=== PATIENT | male | born 1935 | race Caucasian/White ===

== ENCOUNTER 2017-09-26 07:39 | Day surgery (SDC) | payer MEDICARE, OTHER ==
[~2017-09-26] VITALS: Ht 180.3 cm; Wt 90.7 kg
[~2017-09-26 07:39] MED LIST: ASCO500; ATOR10; ATOR20 PO; CALCA400CH; CHOL10002; CIPR500 PO; CRANBERRY250 MG; CYAN500; FISH OIL 1,0001 EAC1; LIPITOR; OXYACE5T PO; PYRI100; SERT25; SERT50 PO; TAMS.4ER PO; TUMS300 MG; ZINC15; ZOLOFT
== END 2017-09-26 10:20 | disposition home or self-care (01) ==
LOC: ORSCSDS 07:39
PROVIDERS: Internal Medicine Gastroenterology
PROC: 0DBM8ZX Excision of Descending Colon, Via Natural or Artificial Opening Endoscopic, Diagnostic (ICD-10-PCS; principal; 2017-09-26 09:00)
PROC: 0DBN8ZX Excision of Sigmoid Colon, Via Natural or Artificial Opening Endoscopic, Diagnostic (ICD-10-PCS; principal; 2017-09-26 09:00)
PROC: 0DBH8ZX Excision of Cecum, Via Natural or Artificial Opening Endoscopic, Diagnostic (ICD-10-PCS; principal; 2017-09-26 09:00)
DX: Z12.11 Encounter for screening for malignant neoplasm of colon (principal); D12.0 Benign neoplasm of cecum; D12.4 Benign neoplasm of descending colon; D12.5 Benign neoplasm of sigmoid colon; K57.30 Diverticulosis of large intestine without perforation or abscess without bleeding; I10 Essential (primary) hypertension; Z86.010 Personal history of colon polyps; Z87.891 Personal history of nicotine dependence; Z79.899 Other long term (current) drug therapy
CPT/HCPCS: 88305; J0330; J1980; J2405; J7120

== ENCOUNTER 2018-09-02 21:20 | Emergency (ER) | payer MEDICARE, OTHER ==
[~2018-09-02] VITALS: Ht 180.3 cm; Wt 97.5 kg
[2018-09-02 21:42] LABS: BASOPHILS ABSOLUTE AUTO 0.03 K/mm3 (0.00-0.23); BASOPHILS PERCENT AUTO 0 % (0-2); EOSINOPHILS ABSOLUTE AUTO 0.04 K/mm3 (0.00-0.68); EOSINOPHILS PERCENT AUTO 0 % (0-6); Hematocrit 44.9 % (37.0-53.0); Hemoglobin 15.4 g/dL (13.5-17.5); IMMATURE GRAN ABSOLUTE AUTO 0.04 K/mm3 (0.00-0.10); IMMATURE GRAN PERCENT AUTO 0 % (0-1); LYMPHOCYTES ABSOLUTE AUTO 1.13 K/mm3 (0.84-5.20); LYMPHOCYTES PERCENT AUTO 11 % (21-46); MONOCYTES ABSOLUTE AUTO 0.46 K/mm3 (0.16-1.47); MONOCYTES PERCENT AUTO 5 % (4-13); Mean Corpuscular HGB 30.7 pg (26.0-34.0); Mean Corpuscular HGB Conc 34.3 g/dL (31.5-36.5); Mean Corpuscular Volume 90 fL (80-100); Mean Platelet Volume 9.1 fL (9.1-12.4); NEUTROPHILS ABSOLUTE AUTO 8.28 K/mm3 (1.96-9.15); NEUTROPHILS PERCENT AUTO 83 % (41-73); Platelet Count 226 K/mm3 (150-400); RDW Coefficient Variation 12.9 % (11.7-14.2); RDW Standard Deviation 42.7 fL (35.1-46.3); Red Blood Cell Count 5.01 M/mm3 (4.30-5.90); White Blood Cell Count 9.98 K/mm3 (4.00-11.30)
[2018-09-02 21:57] LABS: Alanine Aminotransfer (ALT/SGP 28 U/L (12-78); Albumin, Blood 3.7 g/dL (3.4-5.0); Albumin/Globulin Ratio 1.2 (0.8-1.8); Alk Phos 82 U/L (50-136); Anion Gap 9 mmol/L (6-16); Aspartate Aminotrans (AST/SGOT 20 U/L (12-37); Bilirubin, Total 0.4 mg/dL (0.1-1.0); Blood Urea Nitrogen 14 mg/dL (8-24); Bun/Creatinine Ratio 11.8 (12.0-20.0); CO2, Blood 24 mmol/L (21-32); Calcium, Blood 9.1 mg/dL (8.5-10.1); Chloride, Blood 105 mmol/L (98-108); Creatinine, Blood 1.19 mg/dL (0.60-1.20); Globulin, Blood 3.1 g/dL (2.2-4.0); Glomerular Filtration Rate >60 (60-); Glucose, Blood 206 mg/dL (70-99); Potassium, Blood 3.6 mmol/L (3.5-5.5); Sodium, Blood 138 mmol/L (136-145); Total Protein, Blood 6.8 g/dL (6.4-8.2); Troponin I <0.015 ng/mL (0.000-0.040)
== END 2018-09-02 23:11 | disposition home or self-care (01) ==
LOC: ER 21:20
PROVIDERS: Emergency Medicine
DX: R55 Syncope and collapse (principal); F32.9 Major depressive disorder, single episode, unspecified; E78.5 Hyperlipidemia, unspecified
CPT/HCPCS: 36415; 80053; 84484; 85025; 93005; 93010; 99284-25

== ENCOUNTER 2020-12-14 15:07 | Inpatient (IN) | payer MEDICARE, OTHER ==
[~2020-12-14] VITALS: Ht 175.3 cm; Wt 93.6 kg
[2020-12-14 15:37] LABS: BASOPHILS ABSOLUTE AUTO 0.08 K/mm3 (0.00-0.23); BASOPHILS PERCENT AUTO 0 % (0-2); EOSINOPHILS PERCENT AUTO 0 % (0-6); Hematocrit 49.4 % (37.0-53.0); Hemoglobin 16.9 g/dL (13.5-17.5); IMMATURE GRAN ABSOLUTE AUTO 0.13 K/mm3 (0.00-0.10); IMMATURE GRAN PERCENT AUTO 1 % (0-1); LYMPHOCYTES ABSOLUTE AUTO 0.52 K/mm3 (0.84-5.20); LYMPHOCYTES PERCENT AUTO 2 % (21-46); MONOCYTES ABSOLUTE AUTO 1.25 K/mm3 (0.16-1.47); MONOCYTES PERCENT AUTO 6 % (4-13); Mean Corpuscular HGB 29.8 pg (26.0-34.0); Mean Corpuscular HGB Conc 34.2 g/dL (31.5-36.5); Mean Corpuscular Volume 87 fL (80-100); Mean Platelet Volume 9.5 fL (9.1-12.4); NEUTROPHILS PERCENT AUTO 91 % (41-73); Platelet Count 301 K/mm3 (150-400); RDW Coefficient Variation 13.3 % (11.7-14.2); RDW Standard Deviation 42.6 fL (35.1-46.3); Red Blood Cell Count 5.68 M/mm3 (4.30-5.90); White Blood Cell Count 22.68 K/mm3 (4.00-11.30)
[2020-12-14] MEDS ORDERED: ZOLOFT100 M4 PO (15:47)
[2020-12-14] MEDS ORDERED: TAMSULOSIN HCL0.4 M1 PO (15:47)
[2020-12-14 16:06] LABS: Alanine Aminotransfer (ALT/SGP 109 U/L (12-78); Albumin, Blood 2.4 g/dL (3.4-5.0); Albumin/Globulin Ratio 0.5 (0.8-1.8); Alk Phos 97 U/L (50-136); Anion Gap 10 mmol/L (6-16); Aspartate Aminotrans (AST/SGOT 105 U/L (12-37); Bilirubin, Total 1.3 mg/dL (0.1-1.0); Blood Urea Nitrogen 75 mg/dL (8-24); CO2, Blood 24 mmol/L (21-32); Calcium, Blood 9.6 mg/dL (8.5-10.1); Chloride, Blood 109 mmol/L (98-108); Creatinine, Blood 1.25 mg/dL (0.60-1.20); Ethanol (Alcohol), Blood, Med <3 mg/dL; Globulin, Blood 4.8 g/dL (2.2-4.0); Glomerular Filtration Rate 58 (60-); Glucose, Blood 209 mg/dL (70-99); Potassium, Blood 3.7 mmol/L (3.5-5.5); Sodium, Blood 143 mmol/L (136-145); Total Protein, Blood 7.2 g/dL (6.4-8.2); Troponin I 0.055 ng/mL (0.000-0.040)
[2020-12-14 16:09] LABS: CPK Creatine Kinase 1703 U/L (39-308)
[2020-12-14 16:22] LABS: Creatine Kinase MB 14.4 ng/mL (0.0-3.6); Creatine Kinase MB Index 0.8 (0.0-4.0)
[2020-12-14 17:33] LABS: Source, Urine Catheter
[2020-12-14 17:37] LABS: Appearance, Urine Hazy (Clear); Bilirubin, Urine Neg (Neg); Blood, Urine 5+ (Neg); Color, Urine Amber (P-Yellow); Glucose Qualitative, Urine 1+ (Neg); Ketones, Urine 2+ (Neg); Leukocyte Esterase, Urine 1+ (Neg); Nitrite, Urine Neg (Neg); Protein, Urine 3+ (Neg); Urobilinogen, Urine 1+ (Normal)
[2020-12-14 17:50] LABS: U Amphetamine Screen Not Detected; U Barbituate Screen Not Detected; U Benzodiazapine Screen Not Detected; U Buprenorphine Screen Not Detected; U Cannabinoids Screen Not Detected; U Cocaine Screen Not Detected; U Methadone Screen Not Detected; U Methamphetamine Screen Not Detected; U Opiates Screen DETECTED; U Oxycodone Screen Not Detected; U Phencyclidine Screen Not Detected; U Propoxyphene Screen Not Detected
[2020-12-14 18:09] LABS: Amorphous Light (0-Heavy); Bacteria Many /hpf; Mucus Heavy (0-Heavy); Renal Epithelial Few /hpf (0-Rare); Squamous Epithelial Cells Rare /hpf (Few); Transitional Epithelial Cells Few /hpf (0-Rare)
[2020-12-14] MEDS ORDERED: CALCIPOTRIENE60 G1 TOP (18:48)
[2020-12-14] MEDS ORDERED: Fluocinonide15 GM TOP (18:49)
[2020-12-14] MEDS ORDERED: TRIDERM28.4 GM TOP (18:49)
[2020-12-14] MEDS ORDERED: BACL10 PO (18:50)
[2020-12-14] MEDS ORDERED: SERT100 PO (18:50)
[2020-12-14] MEDS ORDERED: ATOR40TA PO (18:50)
[2020-12-14] MEDS ORDERED: BUSPIRONE HCL7.5 M1 PO (18:52)
[2020-12-14] MEDS ORDERED: TAMS.4ER PO (18:52)
[2020-12-14] MEDS ORDERED: UROXATRAL PO (18:53)
--- NOTE | 2020-12-15 05:08 | NUR ---
SHIFT SUMMARY RECIEVED REPORT FROM CHAYO KRAFT. PATIENT TO ROOM VIA STRETCHER AND SLID TO THE BED @2137. PATIENT ALERT AND ANSWERS ORIENTATION QUESTIONS, PERSON, PLACE, SELF, YEAR. BUT HAS FLIGHT OF IDEAS AND WHEN ASKED ABOUT MEDICAL HISTORY DOES NOT ANSWER APPROPRIETLY. PATIENT YELLS OUT FOR PEOPLE WHO ARE NOT HERE AND NEEDS REORIENTED OCCASIONALLY. Q2 HOUR TURNS. LACTIC ACID OF 4.0 CALLED TO HOSPITALIST 1L LR BOLUS GIVEN. PATIENT WENT INTO SVT CALLED HOSPITALIST, EKG DONE, CARDIZEM PUSH GIVEN. PATIENT HR SLOWED AND STAYED SINUS TACH @ 100-110s. C-COLLAR IN PLACE. CONDOM CATHETER TO BETTER MEASURE OUTPUT. CALL LIGHT IN REACH.
[2020-12-15 06:29] LABS: BASOPHILS ABSOLUTE AUTO 0.05 K/mm3 (0.00-0.23); BASOPHILS PERCENT AUTO 0 % (0-2); EOSINOPHILS PERCENT AUTO 0 % (0-6); Hematocrit 41.7 % (37.0-53.0); Hemoglobin 14.3 g/dL (13.5-17.5); IMMATURE GRAN ABSOLUTE AUTO 0.17 K/mm3 (0.00-0.10); IMMATURE GRAN PERCENT AUTO 1 % (0-1); LYMPHOCYTES PERCENT AUTO 3 % (21-46); MONOCYTES ABSOLUTE AUTO 0.93 K/mm3 (0.16-1.47); MONOCYTES PERCENT AUTO 5 % (4-13); Mean Corpuscular HGB 29.7 pg (26.0-34.0); Mean Corpuscular HGB Conc 34.3 g/dL (31.5-36.5); Mean Corpuscular Volume 87 fL (80-100); Mean Platelet Volume 9.3 fL (9.1-12.4); NEUTROPHILS ABSOLUTE AUTO 18.53 K/mm3 (1.96-9.15); NEUTROPHILS PERCENT AUTO 91 % (41-73); Platelet Count 248 K/mm3 (150-400); RDW Coefficient Variation 13.5 % (11.7-14.2); RDW Standard Deviation 43.4 fL (35.1-46.3); Red Blood Cell Count 4.81 M/mm3 (4.30-5.90); White Blood Cell Count 20.28 K/mm3 (4.00-11.30)
[2020-12-15 06:58] LABS: Alanine Aminotransfer (ALT/SGP 119 U/L (12-78); Albumin/Globulin Ratio 0.5 (0.8-1.8); Alk Phos 87 U/L (50-136); Anion Gap 6 mmol/L (6-16); Aspartate Aminotrans (AST/SGOT 110 U/L (12-37); Bilirubin, Total 1.2 mg/dL (0.1-1.0); Blood Urea Nitrogen 53 mg/dL (8-24); Bun/Creatinine Ratio 54.8 (12.0-20.0); CO2, Blood 24 mmol/L (21-32); CPK Creatine Kinase 868 U/L (39-308); Calcium, Blood 8.8 mg/dL (8.5-10.1); Chloride, Blood 114 mmol/L (98-108); Creatinine, Blood 0.97 mg/dL (0.60-1.20); Glomerular Filtration Rate >60 (60-); Glucose, Blood 186 mg/dL (70-99); Potassium, Blood 4.1 mmol/L (3.5-5.5); Sodium, Blood 144 mmol/L (136-145)
[2020-12-15 10:59] LABS: Source, Urine Catheter
[2020-12-15 11:10] LABS: Appearance, Urine Clear (Clear); Bilirubin, Urine Neg (Neg); Blood, Urine 2+ (Neg); Color, Urine Yellow (P-Yellow); Glucose Qualitative, Urine Neg (Neg); Ketones, Urine Neg (Neg); Leukocyte Esterase, Urine 1+ (Neg); Nitrite, Urine Neg (Neg); Protein, Urine 2+ (Neg); Specific Gravity, Urine 1.015 (1.003-1.022); Urobilinogen, Urine 1+ (Normal)
[2020-12-15 11:48] LABS: White Blood Cells, Urine 0-2 /hpf (0-5)
[2020-12-15 11:50] LABS: Bacteria Few /hpf; Hyaline Casts 0-2 /lpf (0-2); Mucus Light (0-Heavy); Red Blood Cells, Urine 0-2 /hpf (0-2); Squamous Epithelial Cells Few /hpf (Few)
[2020-12-15 17:39] LABS: Influenza A, PCR NEGATIVE (NEGATIVE); Influenza B, PCR NEGATIVE (NEGATIVE); Resp Syncytial Virus, PCR NEGATIVE (NEGATIVE); SARS-Cov-2 (COVID-19) PCR, MMC NEGATIVE (NEGATIVE)
[2020-12-15 18:03] LABS: Body Fluid Crystals NEG (NEGATIVE)
[2020-12-15 18:05] LABS: BODY FLUID RBC 0.053 M/mm3 (0-0); Body Fluid Crystals NEG (NEGATIVE); RBC Count, Synovial Fluid 53000 /mm3 (0-0)
[2020-12-15 18:14] LABS: BODY FLUID RBC 0.015 M/mm3 (0-0); RBC Count, Synovial Fluid 15000 /mm3 (0-0)
--- NOTE | 2020-12-15 18:17 | NUR ---
Called lab for rapid covid results. Microbiology states that it is a negative covid. Message sent to physician to inform of negative result.
[2020-12-15 18:36] LABS: WBC Count, Synovial Fluid 144860 /mm3 (0-180)
[2020-12-15 18:42] LABS: WBC Count, Synovial Fluid 74660 /mm3 (0-180)
[2020-12-15 18:47] LABS: Appearance, Synovial Fluid Turbid (Clear); Color, Synovial Fluid Yellow (None-P Yel)
[2020-12-15 18:48] LABS: Appearance, Synovial Fluid Turbid (Clear); Color, Synovial Fluid Yellow (None-P Yel)
[2020-12-15 19:24] LABS: Lymphs, Synovial Fluid 1 % (0-15); Monocytes/Macrophages, Synovia 9 % (0-65); Neutrophils, Synovial Fluid 90 % (0-24)
[2020-12-15 19:25] LABS: Monocytes/Macrophages, Synovia 4 % (0-65); Neutrophils, Synovial Fluid 96 % (0-24)
--- NOTE | 2020-12-15 20:08 | NUR ---
SHIFT SUMMARY PT A&Ox4; NONSENSICAL/CONFUSED AT TIMES, EASILY REORIENTED. PT RESTING IN BED, REPOSITIONED FOR COMFORT. C-COLLAR REMAINED IN PLACE T/O SHIFT. PT RPEORTS PAIN THIS AFTERNOON, WITH ELEVATED BP; MEDICATED x1 WITH POSITIVE RESULTS; PT DENIES ANY ADDITIONAL PAIN MEDICATION T/O SHIFT. ELEVATED BLOOD GLUCOSE, PT REFUSING INSULIN, STATES "YOU AINT SHOOTING ME UP WITH INSULING." DR MURILLO NOTIFIED. DR MURILLO NOTIFIED OF RIGHT HAND, RED, WARM AND SWOLLEN AND JOINT PAIN NOTED T/O, BILATERAL KNEE HURT WITH MINIMAL TOUCH; ORDERS TO CONSULT DR FAIRCHILD; DR FAIRCHILD AT BEDSIDE THIS AFTERNOON; NEW ORDERS ENTERED; COLLECTION OF RIGHT HAND WOUND CULTURES; BILATERAL KNEE ASPIRATION WITH LAB SENT TO [facility]; PT CONTINUES NPO AT THIS TIME, PLANS FOR I&D THIS EVENING. PT DENIES SOB, NAUSEA AND DIZZINESS T/O SHIFT. ELEVATED HR AND BP; MEDICATED PER EMAR. 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 TEMP TRENDING UP. OTHER VSS. NO OTHER ACUTE CHANGES NOTED DURING SHIFT. REPORT GIVEN TO ONCOMING RN.
--- NOTE | 2020-12-15 23:19 | NUR ---
ASSUMPTION OF CARE PATIENT ARRIVED TO UNIT AT 2249 POST-OP. RECEIVED OPERATIVE REPORT FROM ANESTHESIA. PATIENT AWAKE, SHIVERING. 10L 02 VIA NON-REBREATHER. BULKY WRAPPED DRESSING TO RIGHT HAND, REPORTED A PEN-VAISHALI DRAIN UNDER DRESSING. DRESSING C/D/I. C-SPINE COLLAR IN PLACE. BILATERAL KNEE DRESSINGS EACH WITH LARGE IMMOBILZERS FROM THIGH TO CALF IN LENGTH AND BILATERAL JPS IN KNEES WITH RED DRAINAGE. BEAR HUGGER PLACED FOR WARMTH TO ALLEVIATE SHIVERING. WILL REVIEW ORDERS AND TREAT PRESCRIBED.
[2020-12-16 03:47] LABS: BASOPHILS ABSOLUTE AUTO 0.03 K/mm3 (0.00-0.23); BASOPHILS PERCENT AUTO 0 % (0-2); EOSINOPHILS PERCENT AUTO 0 % (0-6); Hematocrit 37.1 % (37.0-53.0); Hemoglobin 12.6 g/dL (13.5-17.5); IMMATURE GRAN ABSOLUTE AUTO 0.24 K/mm3 (0.00-0.10); IMMATURE GRAN PERCENT AUTO 1 % (0-1); LYMPHOCYTES ABSOLUTE AUTO 0.56 K/mm3 (0.84-5.20); LYMPHOCYTES PERCENT AUTO 3 % (21-46); MONOCYTES ABSOLUTE AUTO 0.71 K/mm3 (0.16-1.47); MONOCYTES PERCENT AUTO 4 % (4-13); Mean Corpuscular HGB 29.6 pg (26.0-34.0); Mean Corpuscular Volume 87 fL (80-100); Mean Platelet Volume 9.2 fL (9.1-12.4); NEUTROPHILS ABSOLUTE AUTO 15.94 K/mm3 (1.96-9.15); NEUTROPHILS PERCENT AUTO 91 % (41-73); Platelet Count 208 K/mm3 (150-400); RDW Standard Deviation 44.8 fL (35.1-46.3); Red Blood Cell Count 4.26 M/mm3 (4.30-5.90); White Blood Cell Count 17.48 K/mm3 (4.00-11.30)
--- NOTE | 2020-12-16 04:00 | NUR ---
REASSESSMENT NO ACUTE CHANGES FROM PREVIOUS ASSESSMENT. CONTINUING TO MEDICATE FOR PAIN. PATIENT REMAINS CONFUSED THINKS HE IS IN [place]. DOES NOT ANSWER QUESTIONS APPROPRIATELY AND OFTEN SPEAKS ONE WORD ANSWERS IN MACEDONIAN. WATER GIVEN WITH RN AT BEDSIDE EVALUATING. PATIENT TOLERATING WELL. WILL CONTINUE TO MONITOR.
[2020-12-16 04:29] LABS: Thyroid Stimulating Hormone 0.971 uIU/mL (0.360-4.800)
[2020-12-16 04:30] LABS: Alanine Aminotransfer (ALT/SGP 422 U/L (12-78); Albumin, Blood 1.8 g/dL (3.4-5.0); Albumin/Globulin Ratio 0.5 (0.8-1.8); Alk Phos 106 U/L (50-136); Anion Gap 5 mmol/L (6-16); Aspartate Aminotrans (AST/SGOT 324 U/L (12-37); Bilirubin, Total 1.3 mg/dL (0.1-1.0); Blood Urea Nitrogen 41 mg/dL (8-24); Bun/Creatinine Ratio 42.1 (12.0-20.0); CO2, Blood 26 mmol/L (21-32); Calcium, Blood 8.2 mg/dL (8.5-10.1); Chloride, Blood 113 mmol/L (98-108); Creatinine, Blood 0.98 mg/dL (0.60-1.20); Globulin, Blood 3.5 g/dL (2.2-4.0); Glomerular Filtration Rate >60 (60-); Glucose, Blood 171 mg/dL (70-99); Potassium, Blood 4.1 mmol/L (3.5-5.5); Sodium, Blood 144 mmol/L (136-145); Total Protein, Blood 5.3 g/dL (6.4-8.2)
--- NOTE | 2020-12-16 06:41 | NUR ---
SHIFT SUMMARY PATIENT RECOVERED POST-OP. VITALS STABLE. TITRATED TO ROOM AIR WITH SATS ABOVE 95%. PATIENT ALERT, CONFUSED TO SITUATION. OFTEN THINKS HE IS IN [place], CALLS OUT FOR ZOLTAN TO HELP HIM OFF THE FLOOR. IS EASILY DIRECTED AND RE-ORIENTED. DRESSING TO RIGHT HAND SATURATED WITH RED DRAINAGE. REWRAPPED IN DRY, CLEAN GAUZE AND BANDAGE WRAP PREVIOUSLY DRESSED BY SURGEON. IMMOBILIZERS REMAIN TO BILATERAL LOWER EXTREMITIES WITH DRESSING TO BILATERAL KNEES C/D/I. JPS WITH S/S DRAINAGE. PATIENT REPORTS SEVERE PAIN TO BILATERAL LOWER EXTREMITIES. CALLED AND SPOKE WITH DR. ACHARYA WHO REQUESTED THE HOSPITALIST BE REACHED. SPOKE WITH DR. WOOD AND RECEIVED ORDERS FOR ONE TIME DOSE OF ADDITIONAL FENTANYL. WILL MEDICATE ORDERED. DUPREE PATENT AND DRAINING. WILL CONTINUE TO MONITOR AND TREAT PRESCRIBED.
--- NOTE | 2020-12-16 07:15 | NUR ---
BEGINNING OF SHIFT Assumed care of pt at 0700. Bedside report received from Therese KRAFT. Pt A&O x 4. Answers questions. Follows commands. Verbalizes needs. Pt pleasant and cooperative with care. Pt on room air. SpO2 90% or greater. SR to ST with HR ranging from 95-105. BP stable. Pt has surgical site to right hand. ISABELLE wrap C/D/I. Color, sensation, capillary refill equal to bilat hands. Pt has surgical sites to bilat knees. ISABELLE wraps C/D/I. Knee immobilizers in place bilaterally. Bilat HEATHER drains with small amount of SS drainage. Pt also has C-Collar in place until he can follow up outpatient for C4 abnormality. Skin C/D/I beneath collar. Pt states that he has lived alone, since his partner, Bandar, . States that he currently lives alone at home, and was found by his neighbor.
--- NOTE | 2020-12-16 13:00 | NUR ---
Dr Lopez in to see pt. States he changed antibiotics. No additional orders at this time.
--- NOTE | 2020-12-16 14:00 | NUR ---
Call placed to Dr Stevens to discuss pt's pain medications as he is extremely uncomfortable with any activity. Also discussed edema to RUE and concern for DVT. New orders received
--- NOTE | 2020-12-16 14:09 | NUR ---
Echocardiogram completed.
--- NOTE | 2020-12-16 17:22 | NUR ---
DR RODRÍGUEZ IN TO SEE PATIENT States pt may move out of ICU. Notified Dr Stevens. Provider states pt can be PCU status. Pt is reporting that he is feeling bloated and would like something for gas. Dr Stevens notified. New orders provided.
--- NOTE | 2020-12-16 18:28 | NUR ---
SUMMARY Pt is now PCU status. Vitals stable. Pt did not want to eat lunch or dinner. Pt has had excellent intake of PO fluids. C spine immobilizer and bilat knee immobilizers remain in place. No acute changes to initial assessment. Will continue to closely monitor until care handoff and bedside report with oncoming RN.
[2020-12-17 03:26] LABS: BASOPHILS ABSOLUTE AUTO 0.04 K/mm3 (0.00-0.23); BASOPHILS PERCENT AUTO 0 % (0-2); EOSINOPHILS ABSOLUTE AUTO 0.12 K/mm3 (0.00-0.68); EOSINOPHILS PERCENT AUTO 1 % (0-6); Hematocrit 34.6 % (37.0-53.0); Hemoglobin 11.5 g/dL (13.5-17.5); IMMATURE GRAN ABSOLUTE AUTO 0.39 K/mm3 (0.00-0.10); IMMATURE GRAN PERCENT AUTO 3 % (0-1); LYMPHOCYTES ABSOLUTE AUTO 0.76 K/mm3 (0.84-5.20); LYMPHOCYTES PERCENT AUTO 6 % (21-46); MONOCYTES ABSOLUTE AUTO 0.63 K/mm3 (0.16-1.47); MONOCYTES PERCENT AUTO 5 % (4-13); Mean Corpuscular HGB 29.6 pg (26.0-34.0); Mean Corpuscular HGB Conc 33.2 g/dL (31.5-36.5); Mean Corpuscular Volume 89 fL (80-100); Mean Platelet Volume 9.5 fL (9.1-12.4); NEUTROPHILS ABSOLUTE AUTO 11.45 K/mm3 (1.96-9.15); NEUTROPHILS PERCENT AUTO 86 % (41-73); Platelet Count 210 K/mm3 (150-400); RDW Coefficient Variation 14.2 % (11.7-14.2); RDW Standard Deviation 46.1 fL (35.1-46.3); Red Blood Cell Count 3.89 M/mm3 (4.30-5.90); White Blood Cell Count 13.39 K/mm3 (4.00-11.30)
[2020-12-17 03:46] LABS: Alanine Aminotransfer (ALT/SGP 281 U/L (12-78); Albumin, Blood 1.7 g/dL (3.4-5.0); Albumin/Globulin Ratio 0.5 (0.8-1.8); Alk Phos 101 U/L (50-136); Anion Gap 7 mmol/L (6-16); Aspartate Aminotrans (AST/SGOT 147 U/L (12-37); Blood Urea Nitrogen 38 mg/dL (8-24); Bun/Creatinine Ratio 40.6 (12.0-20.0); CO2, Blood 24 mmol/L (21-32); Calcium, Blood 7.9 mg/dL (8.5-10.1); Chloride, Blood 111 mmol/L (98-108); Creatinine, Blood 0.94 mg/dL (0.60-1.20); Globulin, Blood 3.1 g/dL (2.2-4.0); Glomerular Filtration Rate >60 (60-); Glucose, Blood 121 mg/dL (70-99); Potassium, Blood 3.6 mmol/L (3.5-5.5); Sodium, Blood 142 mmol/L (136-145); Total Protein, Blood 4.8 g/dL (6.4-8.2)
--- NOTE | 2020-12-17 06:10 | NUR ---
SHIFT SUMMARY VSS IN NORMAL SINUS RHYTHM. ON RA. PATIENT SLEPT T/O MAJORITY OF SHIFT. DRESSING ON RIGHT HAND CHANGED WITH SCANT SEROUS DRAINAGE NOTED FROM WINTER. KNEE IMMOBILIZERS PRESENT BILAT. SURGICAL DRESSINGS O BILAT KNEES C/D/I WITH MINIMAL DRAINAGE TO HEATHER DRAINS. HEATHER DRAINS PATENT. PATIENT CONTINUES TO OCCASIONALY SPEAK IN BULGARIAN. C COLLAR REMAINS IN PLACE. BILAT PEDAL EDEMA 1+ NOTED. PT PLACED NPO AFTER MIDNIGHT FOR PROCEDURE THIS AM. CATHETER CARE PROVIDE. ADEQUATE URINE OUTPUT. PT PUSHED ORAL FLUIDS. PT REFUSED TO BE TURNED AND STATES IT IS TOO PAINFUL TO MOVE. PILLOWS PLACED UNDER HIPS BILAT OFF AND ON. BED ALARM IN PLACE. WILL CONTINUE TO MONITOR UNTIL END OF SHIFT.
--- NOTE | 2020-12-17 06:58 | NUR ---
RN STUDENT THIS RN AGREES WITH STUDENT RN'S ASSESMENT AND CHARTING.
--- NOTE | 2020-12-17 07:30 | NUR ---
ASSUMED CARE OF PT AT THIS TIME. PT A&OX4, VSS, COOPERATIVE WITH CARE. PINROSE DRAIN TO R HAND WITH ISABELLE WRAP, SCANT SS DRAINAGE PRESENT. BILATERAL HEATHER DRAINS TO KNEES, SS DRAINAGE PRESENT. BILATERAL KNEE IMMOBILIZERS IN PLACE. SCATTERED ECCHYMOSIS ON BODY. SCABBED AREAS NOTED TO HEAD, R ELBOW, L CHEEK, L RIB, AND R TOE. DR RODRÍGUEZ AT BEDSIDE FOR ASSESSMENT. PT TO CT THIS AM TO DETERMINE ADDITIONAL SURGICAL INTERVENTION. BED IN LOW, LOCKED POSITION, CALL LIGHT WITHIN REACH. NO ADDITIONAL NEEDS AT THIS TIME, PT RESTING COMFORTABLY. DUPREE IN PLACE, DARK VIANNEY OUTPUT. NS INFUSING AT 100MLS/HR.
--- NOTE | 2020-12-17 12:12 | NUR ---
DAY SURGERY CALLED STATING PT WILL BE TAKEN TO SURGERY BY DR RODRÍGUEZ AT 12:45
--- NOTE | 2020-12-17 18:15 | NUR ---
PT TAKEN TO ROOM 224 ON SURGICAL FLOOR. DUPREE INTACT AND DRAINING. TEA/VIANNEY COLORED URINE. PINROSE DRAIN TO R HAND. BILATERAL HEATHER DRAINS IN KNEES WITH SEROSANGUINEOUS DRAINAGE. C-COLLAR IN PLACE. REPORT GIVEN TO PIYUSH MORIN RN.
--- NOTE | 2020-12-17 18:58 | NUR ---
ASSUMED CARE OF PT AT 1830 WHEN PT TRANSFERRED FROM ICU TO ROOM 224. PT NOTED TO BE IN C-COLLAR AND SONG KNEE IMMOBILIZERS. RIGHT HAND BANDAGED AND ISABELLE WRAP. CARE HAND OFF REPORT GIVEN TO ELENO KRAFT.
--- NOTE | 2020-12-17 23:18 | NUR ---
DR. RODRÍGUEZ IN TO SEE PATIENT AT APPROX 2030 TO CHANGE DRESSINGS. BLE WRAPPED IN GAUZE AND ISABELLE WRAP. HEATHER DRAINS IN PLACE DRAINING SS FLUID. BULBS COMPRESSED. WINTER DRAIN REMOVED FROM RIGHT HAND AND PACKED WITH STERILE PACKING STRIP. R HAND WRAPPED WITH GAUZE+ISABELLE WRAP. ALL DRESSINGS C/D/I. PT TOLERATED WELL.
[2020-12-18 05:59] LABS: BASOPHILS ABSOLUTE AUTO 0.05 K/mm3 (0.00-0.23); BASOPHILS PERCENT AUTO 1 % (0-2); EOSINOPHILS ABSOLUTE AUTO 0.18 K/mm3 (0.00-0.68); EOSINOPHILS PERCENT AUTO 2 % (0-6); Hematocrit 36.3 % (37.0-53.0); Hemoglobin 12.4 g/dL (13.5-17.5); IMMATURE GRAN ABSOLUTE AUTO 0.82 K/mm3 (0.00-0.10); IMMATURE GRAN PERCENT AUTO 8 % (0-1); LYMPHOCYTES PERCENT AUTO 8 % (21-46); MONOCYTES ABSOLUTE AUTO 0.72 K/mm3 (0.16-1.47); MONOCYTES PERCENT AUTO 7 % (4-13); Mean Corpuscular HGB 29.9 pg (26.0-34.0); Mean Corpuscular HGB Conc 34.2 g/dL (31.5-36.5); Mean Corpuscular Volume 88 fL (80-100); Mean Platelet Volume 9.9 fL (9.1-12.4); NEUTROPHILS ABSOLUTE AUTO 8.32 K/mm3 (1.96-9.15); NEUTROPHILS PERCENT AUTO 76 % (41-73); Platelet Count 223 K/mm3 (150-400); RDW Coefficient Variation 13.9 % (11.7-14.2); RDW Standard Deviation 44.8 fL (35.1-46.3); Red Blood Cell Count 4.15 M/mm3 (4.30-5.90); White Blood Cell Count 10.99 K/mm3 (4.00-11.30)
[2020-12-18 06:15] LABS: Alanine Aminotransfer (ALT/SGP 400 U/L (12-78); Albumin, Blood 1.7 g/dL (3.4-5.0); Albumin/Globulin Ratio 0.5 (0.8-1.8); Alk Phos 129 U/L (50-136); Anion Gap 9 mmol/L (6-16); Aspartate Aminotrans (AST/SGOT 301 U/L (12-37); Blood Urea Nitrogen 33 mg/dL (8-24); Bun/Creatinine Ratio 38.2 (12.0-20.0); CO2, Blood 21 mmol/L (21-32); Calcium, Blood 7.8 mg/dL (8.5-10.1); Chloride, Blood 111 mmol/L (98-108); Creatinine, Blood 0.86 mg/dL (0.60-1.20); Globulin, Blood 3.4 g/dL (2.2-4.0); Glomerular Filtration Rate >60 (60-); Glucose, Blood 128 mg/dL (70-99); Potassium, Blood 3.7 mmol/L (3.5-5.5); Sodium, Blood 141 mmol/L (136-145); Total Protein, Blood 5.1 g/dL (6.4-8.2)
--- NOTE | 2020-12-18 07:19 | NUR ---
SHIFT SUMMARY: PT A&O X4. S/P I&D TO RIGHT HAND AND BILATERAL KNEES. DRESSINGS X3 CHANGED THIS SHIFT. BLE HEATHER DRAINS IN PLACE WITH A SCANT AMOUNT OF SS DRG. IMMOBILIZERS IN PLACE. PT ABLE TO WIGGLE TOES. CAP REFILL WNL. RT ARM SWOLLEN, RED AND WARM TO TOUCH. ELEVATED ON PILLOW. C-COLLAR IN PLACE. IVF AND IV ABX INFUSING PER ORDERS. PAIN BEING MANAGED WITH NORCO AND TYLENOL PER EMAR. DUPREE PATENT AND DRAINING DARK COLORED URINE.
--- NOTE | 2020-12-18 14:21 | NUR ---
C-COLLAR DC'D ORDERED, PT TOELRATED WELL, DENIES ANY DISCOMFORT AT THIS TIME.
--- NOTE | 2020-12-18 15:25 | NUR ---
REDNESS NOTED ON PT'S BACK AND ELBOWS, NOTIFIED THE NURSE AND FLOATED PT'S LIMBS WITH PILLOWS
--- NOTE | 2020-12-18 17:24 | NUR ---
SUMMARY PAIN MANAGEABLE WITH NORCO AND IV DILAUDID, WORKED WITH PHY. PERKINS, ABLE TO DANGLE AND DID EXERCISES IN BED, BILAT. KNEE IMMOBILIZERS IN PLACE, TOLERATING PO WELL, HAD A BM TODAY, TURNED AND REPOSITIONED IN BED, BUE'S ELEVATED CONT. TO HAVE EDEMA ON UE'S, L MORE THAN R, IV ON LA, PATENT, FLUSHED WELL AND WITH GOOD BLOOD RETURN, NO ACUTE CHANGES THIS SHIFT.
[2020-12-19 04:30] LABS: Hematocrit 37.2 % (37.0-53.0); Hemoglobin 12.4 g/dL (13.5-17.5); Mean Corpuscular HGB 29.5 pg (26.0-34.0); Mean Corpuscular HGB Conc 33.3 g/dL (31.5-36.5); Mean Corpuscular Volume 88 fL (80-100); Mean Platelet Volume 9.7 fL (9.1-12.4); Platelet Count 304 K/mm3 (150-400); RDW Coefficient Variation 13.8 % (11.7-14.2); RDW Standard Deviation 44.9 fL (35.1-46.3); Red Blood Cell Count 4.21 M/mm3 (4.30-5.90); White Blood Cell Count 10.73 K/mm3 (4.00-11.30)
[2020-12-19 04:56] LABS: Alanine Aminotransfer (ALT/SGP 314 U/L (12-78); Albumin, Blood 1.7 g/dL (3.4-5.0); Albumin/Globulin Ratio 0.5 (0.8-1.8); Alk Phos 140 U/L (50-136); Anion Gap 6 mmol/L (6-16); Aspartate Aminotrans (AST/SGOT 151 U/L (12-37); Blood Urea Nitrogen 25 mg/dL (8-24); Bun/Creatinine Ratio 29.6 (12.0-20.0); CO2, Blood 23 mmol/L (21-32); Calcium, Blood 7.6 mg/dL (8.5-10.1); Chloride, Blood 110 mmol/L (98-108); Creatinine, Blood 0.84 mg/dL (0.60-1.20); Globulin, Blood 3.5 g/dL (2.2-4.0); Glomerular Filtration Rate >60 (60-); Glucose, Blood 137 mg/dL (70-99); Potassium, Blood 3.6 mmol/L (3.5-5.5); Sodium, Blood 139 mmol/L (136-145); Total Protein, Blood 5.2 g/dL (6.4-8.2)
--- NOTE | 2020-12-19 05:05 | NUR ---
SHIFT SUMMARY LYING IN SEMI FOWLERS WITH EYES OPEN WHILE WATCHING TV. PT HAS NOT SLEPT AT ALL THIS SHIFT. HAS CONSUMED SNACKS SEVERAL TIMES. BUE ELEVATED ON PILLOWS AT 2000HR ROUNDS. NOTED THAT THEY WERE OOZING CLEAR FLUID AFTER 0000HRS. PT STATED THAT HE HAD NOT NOTICED IT AT THIS TIME. ALBUMIN LEVEL HAS REMAINED 1.7 G/DL FOR THE PREVIOUS 3 DAYS. 4AM ROUNDS IT WAS NOTED THAT LIQUID BM WAS MAROON IN COLOR. PT DENIES ANY PREVIOUS BLOODY BM OR HEMORRHOID ISSUES. HEATHER DRAIN TO BLE COLLECTING S/S FLUID, BULBS EMPTIED AND COMPRESSED. NO FURTHER SIGNIFICANT CHANGED NOTED THIS SHIFT. DENEIS PAIN, DISCOMFORT, OR FURTHER NEEDS AT THIS TIME. SAFETY MEASURES IN PLACE. WILL CONTINUE TO MONITOR FOR CHANGES/NEEDS AND ADDRESS THEM THEY ARISE. WILL GIVE HAND OFF TO ONCOMING SHIFT USING SBAR DURING BEDSIDE REPORT.
--- NOTE | 2020-12-19 18:38 | NUR ---
DR. MARTINS SAW PT AT ABOUT 1400. R HAND WOUND SOAKED IN WARM WATER FOR 20 MIN, PATTED DRY AND COVERED WITH DRY GAUZE AND ISABELLE WRAP. SURGICAL SITES AT [facility] KNEE ASSESSED BY MYSELF AND DR. MARTINS, WNL. IMMOBILIZERS PLACED BACK ON PT. PT TOLERATED WELL
--- NOTE | 2020-12-19 18:43 | NUR ---
SUMMARY: PT IS S/P I&D OF BILAT KNEES AND R HAND. A/O, VSS. Q2 TURNING AND PRN FOR COMFORT. PT HAS MULTIPLE ABRASIONS, ARMS ELEVATED ON PILLOWS TO HELP REDUCE EDEMA. SURGICAL SITES WNL, PT DENIES N/T. MINIMAL SS OUTPUT FROM BOTH HEATHER DRAINS, BULBS COMPRESSED. BILAT LEGS IN IMMOBILIZERS. NO ACUTE CHANGE TODAY. WILL CTM AND REPORT TO DAY RN.
--- NOTE | 2020-12-20 06:26 | NUR ---
SHIFT SUMMARY LYING IN SEMI FOWLERS WITH EYES OPEN WHILE WATCHING TV. BUE ELEVATED ON PILLOWS DUE TO 3RD SPACING AND OOZING CLEAR YELLOW FLUID FROM BREAKS IN SKIN DUE TO FALLS. HEATHER DRAIN TO BLE COLLECTING S/S FLUID, BULBS EMPTIED AND COMPRESSED. NO FURTHER SIGNIFICANT CHANGED NOTED THIS SHIFT. DENIES PAIN, DISCOMFORT, OR FURTHER NEEDS AT THIS TIME. SAFETY MEASURES IN PLACE. WILL CONTINUE TO MONITOR FOR CHANGES/NEEDS AND ADDRESS THEM THEY ARISE. WILL GIVE HAND OFF TO ONCOMING SHIFT USING SBAR DURING BEDSIDE REPORT.
--- NOTE | 2020-12-20 17:35 | NUR ---
SHIFT SUMMARY PT A&OX4, VSS, TELE NSR @ 86 BPM. POD4 I&D R HAND, SOAKED PER ORDER AND DRESSED WITH KERLIX AND ISABELLE WRAP. BUE EDEMA/WEEPING, ELEVATED ON PILLOWS. BLE, HEATHER L 10 MLS AND HEATHER R 20 MLS, NWB, IMMOBILIZERS ON. DUPREE PATENT & DRAINING YELLOW URINE. REPOSITIONS WELL; PHYSICAL THERAPY SAT PT AT SIDE OF BED. SHERYL PO, JAYDA PACKETS AND GLUCERNA ADDED TODAY. PLAN IS FOR PT TO BE NPO AT MIDNIGHT, SURGEON ROUNDING APPROX 10:30 AM SUNDAY FOR POSSIBLE I&D, DRESSING CHANGE. WILL REPORT TO ONCOMING ELENO RN.
--- NOTE | 2020-12-20 19:26 | NUR ---
RECEIVED REPORT AND ASSUMED CARE OF PT. PT AWAKE AND ALERT, SITTING UP IN BED, STAFF JUST PLACED BEDPAN AND PT REQUESTS PRIVACY AT THIS TIME.
--- NOTE | 2020-12-21 04:21 | NUR ---
SHIFT SUMMARY: NIKOLAS IS A&OX4. VSS, NO ACUTE EVENTS OVERNIGHT. HE REPORTS FEELING FRUSTRATED WITH THE PAIN STATING "IT'S NOT WORTH IT". HE DID REPORT ADEQUATE PAIN CONTROL WITH 0.5 MG OF DILAUDID. IMMOBILIZERS IN PLACE TO BLE, HEATHER DRAINS. IV TO L FA PATENT. DUPREE PATENT, TELE IN PLACE. HE WAS MADE NPO AT MIDNIGHT. HE DID HAVE A SOFT/LIQUID BM THIS SHIFT. HE IS LYING IN BED WITH HIS CALL LIGHT IN REACH. WILL REPORT TO DAY SHIFT RN.
[2020-12-21 12:48] LABS: Influenza A, PCR NEGATIVE (NEGATIVE); Influenza B, PCR NEGATIVE (NEGATIVE); Resp Syncytial Virus, PCR NEGATIVE (NEGATIVE); SARS-Cov-2 (COVID-19) PCR, MMC NEGATIVE (NEGATIVE)
--- NOTE | 2020-12-21 13:13 | NUR ---
PT TRANSFERED TO [facility] VIA BED FROM FLOOR. History, Chart, Medications and Allergies reviewed before start of procedure. Lungs clear T/O to Auscultation. Patient confirms NPO status and agrees with scheduled surgery.
--- NOTE | 2020-12-21 15:10 | NUR ---
12/21/20 1510 David Poon PATIENT ARRIVED TO OR WITH DUPREE CATH IN PLACE. BILATERAL HEATHER DRAINS IN KNEES, BILATERAL KNEE IMMOBILIZERS.
--- NOTE | 2020-12-21 19:22 | NUR ---
SHIFT SUMMARY PT A&OX4, TELE ST 103. S/P SECOND I&D RIGHT HAND, DRESSING CDI/ELEVATED; BLE IMMOBILIZERS AND HEATHER DRAIN, NWB/BEDREST. ALL EXT'S WITH EDEMA. PAIN MANAGED WITH 0.5 DILAUDID AND NORCO. SHERYL PO, DENIES N&V. DUPREE PATENT & DRAINING YELLOW URINE. REPORT PROVIDED TO MARCO KRAFT.
[2020-12-22 04:38] LABS: BASOPHILS ABSOLUTE AUTO 0.03 K/mm3 (0.00-0.23); BASOPHILS PERCENT AUTO 0 % (0-2); EOSINOPHILS ABSOLUTE AUTO 0.02 K/mm3 (0.00-0.68); EOSINOPHILS PERCENT AUTO 0 % (0-6); Hematocrit 32.4 % (37.0-53.0); IMMATURE GRAN ABSOLUTE AUTO 0.39 K/mm3 (0.00-0.10); IMMATURE GRAN PERCENT AUTO 3 % (0-1); LYMPHOCYTES ABSOLUTE AUTO 0.84 K/mm3 (0.84-5.20); LYMPHOCYTES PERCENT AUTO 6 % (21-46); MONOCYTES ABSOLUTE AUTO 0.86 K/mm3 (0.16-1.47); MONOCYTES PERCENT AUTO 6 % (4-13); Mean Corpuscular HGB 29.4 pg (26.0-34.0); Mean Corpuscular Volume 87 fL (80-100); Mean Platelet Volume 9.8 fL (9.1-12.4); NEUTROPHILS ABSOLUTE AUTO 11.57 K/mm3 (1.96-9.15); NEUTROPHILS PERCENT AUTO 85 % (41-73); Platelet Count 407 K/mm3 (150-400); RDW Coefficient Variation 13.4 % (11.7-14.2); RDW Standard Deviation 42.4 fL (35.1-46.3); Red Blood Cell Count 3.74 M/mm3 (4.30-5.90); White Blood Cell Count 13.71 K/mm3 (4.00-11.30)
--- NOTE | 2020-12-22 04:52 | NUR ---
SUMMARY PT HAS NO NEW ISSUES. PT EXT HAVE NOTED SWELLING AND EDEMA. PT ONLY DISCOMFORT COMPLAINT IS BILAT KNEES. PT TX PER EMAR W/ RELIEF. R HAND BANDAGED, C/D/I. PT HAS SLEPT WELL. PT CURRENTLY SLEEPING IN NO DISTRESS. CALL LIGHT IN REACH.
[2020-12-22 05:03] LABS: Anion Gap 5 mmol/L (6-16); Blood Urea Nitrogen 19 mg/dL (8-24); Bun/Creatinine Ratio 25.1 (12.0-20.0); CO2, Blood 25 mmol/L (21-32); Calcium, Blood 7.5 mg/dL (8.5-10.1); Chloride, Blood 108 mmol/L (98-108); Creatinine, Blood 0.76 mg/dL (0.60-1.20); Glomerular Filtration Rate >60 (60-); Glucose, Blood 144 mg/dL (70-99); Potassium, Blood 3.5 mmol/L (3.5-5.5); Sodium, Blood 138 mmol/L (136-145)
--- NOTE | 2020-12-22 07:15 | NUR ---
ASSUMED CARE: PT RESTING IN BED BUT AWAKE AND TALKING TO STAFF. [place]. BILATERAL KNEE HEATHER DRAINS WITH SEROSANGUINOUS DRAINAGE AND SCANT BLOOD. NSR WITH BBB AND 1ST DEGREE ON TELE RUNNING IN 80S AT THIS TIME. DOGGER AT BEDSIDE.
--- NOTE | 2020-12-22 07:48 | NUR ---
reviewed licensed nursing assistant documentation. edit: scds bilateral calves
--- NOTE | 2020-12-22 16:25 | NUR ---
DR RODRÍGUEZ CAME TO SEE PT AND REMOVED HEATHER DRAINS FROM BILATERAL KNEES AND PLACED ABD PADS AND ISABELLE WRAPS AROUND KNEES. ICE APPLIED. NEW ORDER FOR PT/OT TO EVALUATE FOR AMBULATION STATUS. PLANS TO RETURN TOMORROW TO REDRESS PT'S HAND WOUND.
--- NOTE | 2020-12-22 17:52 | NUR ---
SHIFT SUMMARY PT A/OX4. CHILKAT AT TIMES. ALL EXTREMITIES EDEMATOUS. RIGHT HAND IS WRAPPED IN ISABELLE WRAPPED THAT IS C/D/I. BILATERAL HEATHER DRAINS AND KNEE IMMOBILIZERS REMOVED TODAY BY DR. RODRÍGUEZ. PT/OT TO EVALUATE PATIENT. PAIN MANAGED PER EMAR. DUPREE IN PLACE DRAINING YELLOW URINE.
[2020-12-23 06:52] LABS: Anion Gap 6 mmol/L (6-16); Blood Urea Nitrogen 17 mg/dL (8-24); Bun/Creatinine Ratio 19.4 (12.0-20.0); CO2, Blood 28 mmol/L (21-32); Calcium, Blood 7.5 mg/dL (8.5-10.1); Chloride, Blood 105 mmol/L (98-108); Creatinine, Blood 0.88 mg/dL (0.60-1.20); Glomerular Filtration Rate >60 (60-); Glucose, Blood 153 mg/dL (70-99); Potassium, Blood 3.4 mmol/L (3.5-5.5); Sodium, Blood 139 mmol/L (136-145)
--- NOTE | 2020-12-23 07:53 | NUR ---
SUMMARY PT WHEEZING TONIGHT WITH JVD NOTED. DENIED SOB.HOWEVER, APPEARED LABORED. I/O POISITVE APPROX [address] WALL AND RECEIVED ORDERS FOR SL AND LASIX 40 MG IV X1.POST LASIX, OUTPUT 3,000 ML. NO FURTHER WHEEZING. RESP APPEARING EVEN AND UNLABORED.PT WITH INCREASED ANXIETY AND C/O SUDDEN INCREASED PAIN LEVEL TONIGHT. GVE PO AND IV MED WITH VERBAL GOOD EFFECT.ALTHOUGH, PT REFUSED TO UPDATE PAIN SCALE FOR REASSESS HE STATED HE FELT HARASSED TO BE ASKED.
[2020-12-23 08:38] LABS: BASOPHILS ABSOLUTE AUTO 0.03 K/mm3 (0.00-0.23); BASOPHILS PERCENT AUTO 0 % (0-2); EOSINOPHILS PERCENT AUTO 1 % (0-6); Hematocrit 34.9 % (37.0-53.0); Hemoglobin 11.6 g/dL (13.5-17.5); IMMATURE GRAN ABSOLUTE AUTO 0.25 K/mm3 (0.00-0.10); IMMATURE GRAN PERCENT AUTO 2 % (0-1); LYMPHOCYTES ABSOLUTE AUTO 0.89 K/mm3 (0.84-5.20); LYMPHOCYTES PERCENT AUTO 7 % (21-46); MONOCYTES ABSOLUTE AUTO 0.64 K/mm3 (0.16-1.47); MONOCYTES PERCENT AUTO 5 % (4-13); Mean Corpuscular HGB 29.4 pg (26.0-34.0); Mean Corpuscular HGB Conc 33.2 g/dL (31.5-36.5); Mean Corpuscular Volume 89 fL (80-100); Mean Platelet Volume 10.1 fL (9.1-12.4); NEUTROPHILS PERCENT AUTO 86 % (41-73); Platelet Count 442 K/mm3 (150-400); RDW Coefficient Variation 13.4 % (11.7-14.2); RDW Standard Deviation 43.8 fL (35.1-46.3); Red Blood Cell Count 3.94 M/mm3 (4.30-5.90); White Blood Cell Count 13.61 K/mm3 (4.00-11.30)
--- NOTE | 2020-12-23 14:09 | NUR ---
ATTEMPTED PICC LINE ON L SIDE. PT VERY EDAMATOUS FROM RECENT FALL. R ARM WITH INFECTION ON SHOULDER AND HAND. PT IN ALOT OF PAIN AND UNABLE TO HAVE ARM OUT TO SIDE. ATTEMPTED POWER-GLIDE X2 IN L FA WITH NO SUCCESS IN EITHER ONE. PT TOLERATED PROCEDURE WELL. REPORT GIVEN TO MESERET WISE RN AND THE NURSING CHANNEL TURNER BRADLY VELEZ RN. PT WAS ASKING WHY HE COULD NOT JUST .
--- NOTE | 2020-12-23 18:17 | NUR ---
SUMMARY PT TAKING PO NORCO FOR PAIN, DOSE INCREASED TO 1-[address] RODRIGUES, PICC RN ATTEMPTED TO PLACE A PICC X3 AND A POWERGLIDE BUT WAS UNSUCCESFUL, WORKED W/ PT/OT, PT ONLY ABLE TO SIT UP, C/O DIZZINESS AND WEAKNESS WHEN GETTING UP, PLAN DC TO SNF TOMORROW, R HAND DSG CHANGED BY DR. RODRÍGUEZ THIS AM, NO ACUTE CHANGES THIS SHIFT.
--- NOTE | 2020-12-24 02:23 | NUR ---
STRAIGHT CATH PVR VOLUME 772, STRAIGHT CATH COMPLETED USING STERILE TECHNIQUE. 800ML DRAINED FROM BLADDER, PERICARE PERFORMED TOLERATED WELL. SAFETY MEASURES IN PLACE. WILL CONTINUE TO MONITOR.
--- NOTE | 2020-12-24 07:32 | NUR ---
SUMMARY PT HAS NOT VOID SINCE STRAIGHT CATH.TOLERATING PO FLUIDS. REPORTS PO PAIN MEDS EFFECTIVE.
[2020-12-24 09:45] LABS: Influenza A, PCR NEGATIVE (NEGATIVE); Influenza B, PCR NEGATIVE (NEGATIVE); Resp Syncytial Virus, PCR NEGATIVE (NEGATIVE); SARS-Cov-2 (COVID-19) PCR, MMC NEGATIVE (NEGATIVE)
--- NOTE | 2020-12-24 11:56 | NUR ---
DC'D TO SNF VIA GURNEY TRANSPORT.
== END 2020-12-24 11:54 | DRG 853 ==
LOC: ER 15:07 → SURS 20:23 → PCU 20:23 → ICUE 20:23 → PCU 21:40 → ICUE 12-15 21:23 → SURS 12-17 18:13
PROVIDERS: Emergency Medicine; Internal Medicine; Orthopaedic Surgery; ADMIT Family Medicine
PROC: 3E0234Z Introduction of Serum, Toxoid and Vaccine into Muscle, Percutaneous Approach (ICD-10-PCS; 2020-12-14)
PROC: 0JBJ0ZZ Excision of Right Hand Subcutaneous Tissue and Fascia, Open Approach (ICD-10-PCS; 2020-12-15)
PROC: 0SBD4ZZ Excision of Left Knee Joint, Percutaneous Endoscopic Approach (ICD-10-PCS; principal; 2020-12-15 11:30)
PROC: 0SBC4ZZ Excision of Right Knee Joint, Percutaneous Endoscopic Approach (ICD-10-PCS; 2020-12-15 11:30)
DX: A28.0 Pasteurellosis (principal); G92 Toxic encephalopathy; N39.0 Urinary tract infection, site not specified; M62.82 Rhabdomyolysis; L03.113 Cellulitis of right upper limb; Z66 Do not resuscitate; N17.9 Acute kidney failure, unspecified; L02.511 Cutaneous abscess of right hand; M00.861 Arthritis due to other bacteria, right knee; M00.841 Arthritis due to other bacteria, right hand; Z20.822 Contact with and (suspected) exposure to COVID-19; Z23 Encounter for immunization; N40.0 Benign prostatic hyperplasia without lower urinary tract symptoms; E86.0 Dehydration; E78.5 Hyperlipidemia, unspecified; F32.9 Major depressive disorder, single episode, unspecified; R74.01 Elevation of levels of liver transaminase levels; M48.02 Spinal stenosis, cervical region; Z60.2 Problems related to living alone; Z79.899 Other long term (current) drug therapy; Z98.890 Other specified postprocedural states; Z90.89 Acquired absence of other organs; Z87.891 Personal history of nicotine dependence; W18.30XA Fall on same level, unspecified, initial encounter
CPT/HCPCS: 0241U; 36415; 36569; 51703; 70450; 71045; 72125; 72141; 73030; 73120; 73200; 73201; 73560-RT; 73562-LT; 73562-RT; 80048; 80053; 81001; 82550; 82553; 82607; 82746; 82947; 83036; 83605; 83735; 84443; 84484; 85025; 85027; 85651; 85730; 86140; 86850; 86900; 86901; 87040; 87070; 87075; 87077; 87086; 87186; 87205; 89051; 89060; 90471; 90714; 93005; 93010; 93306; 93971; 96374; 96375; 97110; 97162; 97164; 97166; 97530; 97535; 99285-25; A9270; A9270-GY; C1751; G0480; J0295; J0456; J0696; J1100; J1170; J1650; J1815; J1885; J1940; J2270; J2370; J2405; J2704; J3010; J3370; J7030; J7050; J7120; Q9967

== ENCOUNTER 2020-12-30 18:27 | Inpatient (IN) | payer MEDICARE, OTHER ==
[~2020-12-30] VITALS: Ht 182.9 cm; Wt 90.5 kg
[~2020-12-30 18:27] MED LIST changes: +ATOR40TA PO; +BACL10 PO; +BUSPIRONE HCL7.5 M1 PO; +CALCIPOTRIENE60 G1 TOP; +Fluocinonide15 GM TOP; +SERT100 PO; +TAMSULOSIN HCL0.4 M1 PO; +TRIDERM28.4 GM TOP; +UROXATRAL PO; +ZOLOFT100 M4 PO
[2020-12-30 18:41] LABS: PCO2 Arterial 41.2 mmHg (35-45); PO2 Arterial 230 mmHg (80-100); pH Blood Arterial 7.46 (7.35-7.45)
[2020-12-30 18:51] LABS: BASOPHILS PERCENT AUTO 1 % (0-2); EOSINOPHILS ABSOLUTE AUTO 0.23 K/mm3 (0.00-0.68); EOSINOPHILS PERCENT AUTO 1 % (0-6); Hematocrit 37.5 % (37.0-53.0); Hemoglobin 12.5 g/dL (13.5-17.5); IMMATURE GRAN ABSOLUTE AUTO 0.37 K/mm3 (0.00-0.10); IMMATURE GRAN PERCENT AUTO 2 % (0-1); LYMPHOCYTES ABSOLUTE AUTO 2.19 K/mm3 (0.84-5.20); LYMPHOCYTES PERCENT AUTO 11 % (21-46); MONOCYTES ABSOLUTE AUTO 1.56 K/mm3 (0.16-1.47); MONOCYTES PERCENT AUTO 8 % (4-13); Mean Corpuscular HGB 28.6 pg (26.0-34.0); Mean Corpuscular HGB Conc 33.3 g/dL (31.5-36.5); Mean Corpuscular Volume 86 fL (80-100); Mean Platelet Volume 8.8 fL (9.1-12.4); NEUTROPHILS ABSOLUTE AUTO 15.72 K/mm3 (1.96-9.15); NEUTROPHILS PERCENT AUTO 78 % (41-73); Platelet Count 732 K/mm3 (150-400); RDW Coefficient Variation 13.4 % (11.7-14.2); RDW Standard Deviation 42.3 fL (35.1-46.3); Red Blood Cell Count 4.37 M/mm3 (4.30-5.90); White Blood Cell Count 20.17 K/mm3 (4.00-11.30)
[2020-12-30] MEDS ORDERED: BUSP5 PO (18:53)
[2020-12-30] MEDS ORDERED: B-1100 M1 PO (18:54)
[2020-12-30] MEDS ORDERED: TOCO1000 PO (18:55)
[2020-12-30] MEDS ORDERED: DOCU100 PO (18:55)
[2020-12-30] MEDS ORDERED: METO25ER PO (18:56)
[2020-12-30] MEDS ORDERED: HYDR1TAB94 PO (18:57)
[2020-12-30 19:08] LABS: International Normalized Ratio 1.21; Prothrombin Time Results 12.9 Sec (9.7-11.5)
[2020-12-30 19:12] LABS: Alanine Aminotransfer (ALT/SGP 183 U/L (12-78); Albumin, Blood 1.7 g/dL (3.4-5.0); Albumin/Globulin Ratio 0.4 (0.8-1.8); Alk Phos 162 U/L (50-136); Anion Gap 5 mmol/L (6-16); Aspartate Aminotrans (AST/SGOT 154 U/L (12-37); Bilirubin, Total 0.6 mg/dL (0.1-1.0); Blood Urea Nitrogen 12 mg/dL (8-24); Bun/Creatinine Ratio 15.5 (12.0-20.0); CO2, Blood 29 mmol/L (21-32); Calcium, Blood 8.2 mg/dL (8.5-10.1); Chloride, Blood 101 mmol/L (98-108); Creatinine, Blood 0.78 mg/dL (0.60-1.20); Globulin, Blood 4.4 g/dL (2.2-4.0); Glomerular Filtration Rate >60 (60-); Glucose, Blood 186 mg/dL (70-99); Potassium, Blood 2.9 mmol/L (3.5-5.5); Sodium, Blood 135 mmol/L (136-145); Total Protein, Blood 6.1 g/dL (6.4-8.2); Troponin I 0.029 ng/mL (0.000-0.040)
[2020-12-30 19:16] LABS: Source, Urine Catheter
[2020-12-30 19:32] LABS: Bilirubin, Urine Neg (Neg); Blood, Urine 2+ (Neg); Glucose Qualitative, Urine Neg (Neg); Ketones, Urine Neg (Neg); Leukocyte Esterase, Urine Neg (Neg); Nitrite, Urine Neg (Neg); Protein, Urine 1+ (Neg); Urobilinogen, Urine NORM (Normal)
[2020-12-30 19:39] LABS: Appearance, Urine Clear (Clear); Bacteria Not Seen /hpf; Color, Urine Yellow (P-Yellow); Squamous Epithelial Cells Not Seen /hpf (Few); White Blood Cells, Urine 0-2 /hpf (0-5)
[2020-12-30 20:11] LABS: Influenza A, PCR NEGATIVE (NEGATIVE); Influenza B, PCR NEGATIVE (NEGATIVE); Resp Syncytial Virus, PCR NEGATIVE (NEGATIVE); SARS-Cov-2 (COVID-19) PCR, MMC NEGATIVE (NEGATIVE)
[2020-12-31 03:41] LABS: BASOPHILS ABSOLUTE AUTO 0.01 K/mm3 (0.00-0.23); BASOPHILS PERCENT AUTO 0 % (0-2); EOSINOPHILS PERCENT AUTO 0 % (0-6); Hematocrit 32.7 % (37.0-53.0); Hemoglobin 11.1 g/dL (13.5-17.5); IMMATURE GRAN PERCENT AUTO 1 % (0-1); LYMPHOCYTES PERCENT AUTO 4 % (21-46); MONOCYTES ABSOLUTE AUTO 0.26 K/mm3 (0.16-1.47); MONOCYTES PERCENT AUTO 2 % (4-13); Mean Corpuscular HGB 28.8 pg (26.0-34.0); Mean Corpuscular HGB Conc 33.9 g/dL (31.5-36.5); Mean Corpuscular Volume 85 fL (80-100); Mean Platelet Volume 8.8 fL (9.1-12.4); NEUTROPHILS PERCENT AUTO 92 % (41-73); Platelet Count 454 K/mm3 (150-400); RDW Coefficient Variation 13.2 % (11.7-14.2); Red Blood Cell Count 3.85 M/mm3 (4.30-5.90); White Blood Cell Count 11.27 K/mm3 (4.00-11.30)
[2020-12-31 03:56] LABS: Anion Gap 5 mmol/L (6-16); Blood Urea Nitrogen 11 mg/dL (8-24); Bun/Creatinine Ratio 16.1 (12.0-20.0); CO2, Blood 28 mmol/L (21-32); Calcium, Blood 7.5 mg/dL (8.5-10.1); Chloride, Blood 100 mmol/L (98-108); Creatinine, Blood 0.68 mg/dL (0.60-1.20); Glomerular Filtration Rate >60 (60-); Glucose, Blood 194 mg/dL (70-99); Potassium, Blood 3.8 mmol/L (3.5-5.5); Sodium, Blood 133 mmol/L (136-145)
--- NOTE | 2020-12-31 04:42 | NUR ---
SHIFT SUMMARY AOX4. VSS. PATIENT DID NOT SLEEP MOST OF THE NIGHT. PATIENT HAS SIGNIFICANT EDEMA T/O BODY. PATIENT ARRIVED WITH OUTPATIENT PLACED POWERGLIDE INSERTION SITE CLEANED AND DRESSING CHANGED, C/D/I NO SIGNS OF INFECTION. POST SURGICAL SITE ON RIGHT HAND NOTED DRESSINGS CHANGED AND PICTURES OF WOUND IN CHART. BILATERAL KNEES POST SURGICAL SITES EVALUATED PICTURES IN CHART. O2 SATS MID 90'S ON 6L NC AND HAS CRACKLES AUSCULTATED T/O BILAT LUNGS. OUTPATIENT PLACED DUPREE PRESENT UA CULTIF SENT IN ED. WILL CONTINUE TO MONITOR UNTIL END OF SHIFT.
--- NOTE | 2020-12-31 06:43 | NUR ---
student rn THIS RN HAS REVIEWED AND AGREES WITH STUDENT RN'S ASSESMENT AND CHARTING.
[2020-12-31 10:02] LABS: Vancomycin, Random 7.5 ug/mL
--- NOTE | 2020-12-31 17:32 | NUR ---
SHIFT NOTE PT HAS HAD RT HAND AND ELBOW REDRESSED TODAY. PT RECIEVED ALBUMIN X2. PT WITH EXTENSIVE EDEMA NOTED T/O THE BODY. PITTING EDEMA NOTED TO ARMS BILAT AND LEGS BILAT. ARMS AND LEGS ARE ELEVATED WITH PILLOWS AND FREQUENT REPOSITIONING AND FLOATING OF HIPS. LS WITH CRACKLES NOTED IN LOWER LOBES BILAT. PT IS ALERT, ANSWERS QUESTIONS APPROPRIATELY IN FULL SENTENCES, TIRES EASILY WITH REPOSITIONING. PT EATING WELL. PT APPEARS ORIENTED BUT MAKES COMMENTS THAT HE IS "NEW TO THIS PLANET".
[2021-01-01 04:01] LABS: BASOPHILS ABSOLUTE AUTO 0.03 K/mm3 (0.00-0.23); BASOPHILS PERCENT AUTO 0 % (0-2); EOSINOPHILS ABSOLUTE AUTO 0.04 K/mm3 (0.00-0.68); EOSINOPHILS PERCENT AUTO 0 % (0-6); Hemoglobin 10.5 g/dL (13.5-17.5); IMMATURE GRAN ABSOLUTE AUTO 0.09 K/mm3 (0.00-0.10); IMMATURE GRAN PERCENT AUTO 1 % (0-1); LYMPHOCYTES PERCENT AUTO 7 % (21-46); MONOCYTES PERCENT AUTO 7 % (4-13); Mean Corpuscular HGB Conc 33.9 g/dL (31.5-36.5); Mean Corpuscular Volume 86 fL (80-100); NEUTROPHILS ABSOLUTE AUTO 10.35 K/mm3 (1.96-9.15); NEUTROPHILS PERCENT AUTO 85 % (41-73); Platelet Count 457 K/mm3 (150-400); RDW Coefficient Variation 13.5 % (11.7-14.2); RDW Standard Deviation 42.8 fL (35.1-46.3); Red Blood Cell Count 3.62 M/mm3 (4.30-5.90); White Blood Cell Count 12.21 K/mm3 (4.00-11.30)
[2021-01-01 04:26] LABS: Alanine Aminotransfer (ALT/SGP 153 U/L (12-78); Albumin, Blood 2.2 g/dL (3.4-5.0); Albumin/Globulin Ratio 0.6 (0.8-1.8); Alk Phos 119 U/L (50-136); Anion Gap 5 mmol/L (6-16); Aspartate Aminotrans (AST/SGOT 107 U/L (12-37); Bilirubin, Total 0.8 mg/dL (0.1-1.0); Blood Urea Nitrogen 12 mg/dL (8-24); Bun/Creatinine Ratio 16.1 (12.0-20.0); CO2, Blood 30 mmol/L (21-32); Calcium, Blood 7.8 mg/dL (8.5-10.1); Chloride, Blood 99 mmol/L (98-108); Creatinine, Blood 0.75 mg/dL (0.60-1.20); Globulin, Blood 3.5 g/dL (2.2-4.0); Glomerular Filtration Rate >60 (60-); Glucose, Blood 144 mg/dL (70-99); Magnesium, Blood 1.9 mg/dL (1.6-2.4); Potassium, Blood 2.9 mmol/L (3.5-5.5); Sodium, Blood 134 mmol/L (136-145); Total Protein, Blood 5.7 g/dL (6.4-8.2)
--- NOTE | 2021-01-01 05:56 | NUR ---
SHIFT SUMMARY PT WAS ALERT AND ORIENTED WITH EPISODES OF CONFUSION AND DISORIENTATION. PT WOULD BECOME VERY ANXIOUS AND CALL OUT FOR HELP STATING HE DID NOT KNOW WHERE HE WAS AND THAT HE COULD NOT BREATH. STAFF WOULD LIGHT ADJUSTER PT ON SLOW DEEP BREATHING AND CALMING HIM, PT WOULD RELAX SLIGHTLY AND STATE HE WAS DOING MUCH BETTER, O2 SATS REMAINED >92%. PT STATED HE WAS IN SIGNIFICANT PAIN T/O THE NIGHT THAT WAS NOT CONTROLLED WITH PRN MEDICATIONS. PT STATED HIS PAIN WAS T/O MOST OF HIS BODY AND THE PAIN WOULD RADIATE FROM SITE TO SITE. PT ABLE TO SLEEP SOME AFTER SEVERAL OF THE PRN PAIN MEDICATIONS GIVEN. VITALS STABLE T/O THE NIGHT, BP HYPERTENSIVE 140-150'S SYSTOLIC. HR 100'S. O2 SATS >90% ON 6LPM VIA NC, PT PUT ON BIPAP WHEN HAVING ANXIETY ATTACKS, PT STATED IT HELPED.
--- NOTE | 2021-01-01 17:59 | NUR ---
Spoke with Bedside RN Annmarie and discussed case. Pt has been making statements of wanting to . Pt refused CT imaging today. Pt appears to be showing decline. Pt resting in bed upon arrival. Pt is A&OX2/3. Pt unable to give name of hospital. Pt unable to give appropriate reason for hospital stay. Pt is able to verbalize appropriate year and current season of the year. Engaged in therapeutic discussion regarding goals of care. Discussed reports of Pt wanting to and refusing CT. Pt reports no memory of this and states this could be due to having pain black outs. Continued therapeutic listeing and answered questions. Discussed options including current plan of care and considering comfort care. Pt initial is unsure of his goals and as conversation went on Pt is thinking of continuing current plan of care. Pt reports he will consider his options and is agreeable for continued Palliative Care visits. Palliative Care will F/U for therapeutic and supportive visits.
--- NOTE | 2021-01-01 18:29 | NUR ---
SHIFT NOTE PT HAS BEEN VERY ANXIOUS T/O THIS SHIFT, PT HAS ASKED NUMEROUS TIMES FOR STAFF TO KILL HIM. PT C/O MULTIPLE LOCATIONS OF PAIN RANGING FROM KIDNEY PAIN TO KNEES. PT DEMANDS THAT HE ONLY RECIEVE "THE SPRAY IN THE IV AND NOT THE LITTLE BLACK PILL" FOR PAIN. PT HAS BEEN MEDICATED T/O THE SHIFT FOR PAIN. MD IS CONSULTED PT REFUSED HIS CT TODAY, AND THAT PT IS REPEATEDLY ASKING FOR STAFF TO KILL HIM, PALLIATIVE CARE CONSULTED AND WAS IN TO SEE THE PT. PT REPORTS TO PALLIATIVE CARE THAT HE ONLY WISHES TO WHEN HE IS IN PAIN. SEROQUEL 25MG PO WAS STARTED TODAY FOR ANXIETY WHICH SEEMS TO HAVE CALMED HIM SOME, AND HE HAS BEEN ABLE TO SLEEP T/O THE END OF THE DAY. PT'S CRACKLES IN ALL LOBES HAS INCREASED TODAY DESPITE INCREASE IN LASIX. PT WITH GOOD URINE OUTPUT T/O THE DAY. EDEMA HAS REMAINED UNCHANGED. VANI KRAFT WAS IN TO CHANGE RT HAND DRESSING. O2 NEEDS HAVE NOT CHANGED TODAY
[2021-01-02 04:53] LABS: BASOPHILS ABSOLUTE AUTO 0.03 K/mm3 (0.00-0.23); BASOPHILS PERCENT AUTO 0 % (0-2); EOSINOPHILS ABSOLUTE AUTO 0.14 K/mm3 (0.00-0.68); EOSINOPHILS PERCENT AUTO 1 % (0-6); Hematocrit 32.3 % (37.0-53.0); Hemoglobin 10.6 g/dL (13.5-17.5); IMMATURE GRAN ABSOLUTE AUTO 0.13 K/mm3 (0.00-0.10); IMMATURE GRAN PERCENT AUTO 1 % (0-1); LYMPHOCYTES ABSOLUTE AUTO 0.73 K/mm3 (0.84-5.20); LYMPHOCYTES PERCENT AUTO 7 % (21-46); MONOCYTES ABSOLUTE AUTO 0.65 K/mm3 (0.16-1.47); MONOCYTES PERCENT AUTO 6 % (4-13); Mean Corpuscular HGB 28.7 pg (26.0-34.0); Mean Corpuscular HGB Conc 32.8 g/dL (31.5-36.5); Mean Corpuscular Volume 88 fL (80-100); Mean Platelet Volume 9.3 fL (9.1-12.4); NEUTROPHILS ABSOLUTE AUTO 9.25 K/mm3 (1.96-9.15); NEUTROPHILS PERCENT AUTO 85 % (41-73); Platelet Count 447 K/mm3 (150-400); RDW Coefficient Variation 13.7 % (11.7-14.2); RDW Standard Deviation 44.1 fL (35.1-46.3); Red Blood Cell Count 3.69 M/mm3 (4.30-5.90); White Blood Cell Count 10.93 K/mm3 (4.00-11.30)
[2021-01-02 05:13] LABS: Alanine Aminotransfer (ALT/SGP 126 U/L (12-78); Albumin, Blood 1.9 g/dL (3.4-5.0); Albumin/Globulin Ratio 0.5 (0.8-1.8); Alk Phos 120 U/L (50-136); Anion Gap 3 mmol/L (6-16); Aspartate Aminotrans (AST/SGOT 67 U/L (12-37); Bilirubin, Total 0.7 mg/dL (0.1-1.0); Blood Urea Nitrogen 19 mg/dL (8-24); Bun/Creatinine Ratio 24.4 (12.0-20.0); CO2, Blood 33 mmol/L (21-32); Calcium, Blood 8.1 mg/dL (8.5-10.1); Chloride, Blood 100 mmol/L (98-108); Creatinine, Blood 0.78 mg/dL (0.60-1.20); Globulin, Blood 3.5 g/dL (2.2-4.0); Glomerular Filtration Rate >60 (60-); Glucose, Blood 135 mg/dL (70-99); Magnesium, Blood 1.8 mg/dL (1.6-2.4); Potassium, Blood 3.1 mmol/L (3.5-5.5); Sodium, Blood 136 mmol/L (136-145); Total Protein, Blood 5.4 g/dL (6.4-8.2)
--- NOTE | 2021-01-02 06:08 | NUR ---
SHIFT SUMMARY PT WAS ANXIOUS AND CALLING OUT FREQUENTLY T/O THE NIGHT. PT WULD BECOME VERY ANXIOUS AND PANICKED AND O2 SATS WOULD DROP TO 70-80'S. PT WOULD BE COACHED ON SLOW DEEP BREATHING AND HE WOULD CALM DOWN O2 SATS WOULD RETURN TO 90'S. WHEN PT WOULD BECOME TOO ANXIOUS AND PANICKED TO BE CALMED HE WOULD REQUEST THE BIPAP MASK, BIPAP HELPED PT SLOW BREATHING AND CALM DOWN. DURING THESE EPISODES, BREATHING WOULD BECOME VERY TACHYPNEIC AND SHALLOW AND O2 SATS WOULD FALL TO 70-80'S. PAIN WAS CONTROLLED AT TIMES T/O THE NIGHT AND PT WAS ABLE TO SLEEP, WHEN PT WOULD WAKE UP HE WOULD YELL OUT FOR STAFF. BP HYPERTENSIVE THIS AM. HR 90-100'S. PT HAD MINIMAL CHANGE FROM PREVIOUS NOC SHIFT.
[2021-01-02 10:53] LABS: Vancomycin, Trough 8.3 ug/mL (5.0-10.0)
--- NOTE | 2021-01-02 19:26 | NUR ---
PT TOOK 3 NAPS DURING DAY WITH BIPAP USAGE, RECEIVED ANALGESICS PER NOV FOR REPORTED CONTINUOUS BACK AND ABDOMEN PAIN, REPORTED ANXIETY, RECEIVED ANXIOLYTIC PER NOV, AND REPORTS NO ADDITIONAL CONCERNS AT THIS TIME. PT TOLERATED REPOSITIONING Q2H WELL.
[2021-01-03 04:16] LABS: Hematocrit 29.2 % (37.0-53.0); Hemoglobin 9.7 g/dL (13.5-17.5); Mean Corpuscular HGB 28.9 pg (26.0-34.0); Mean Corpuscular HGB Conc 33.2 g/dL (31.5-36.5); Mean Corpuscular Volume 87 fL (80-100); Mean Platelet Volume 9.2 fL (9.1-12.4); Platelet Count 373 K/mm3 (150-400); RDW Coefficient Variation 13.7 % (11.7-14.2); RDW Standard Deviation 43.1 fL (35.1-46.3); Red Blood Cell Count 3.36 M/mm3 (4.30-5.90); White Blood Cell Count 8.34 K/mm3 (4.00-11.30)
[2021-01-03 04:36] LABS: Alanine Aminotransfer (ALT/SGP 113 U/L (12-78); Albumin, Blood 1.6 g/dL (3.4-5.0); Albumin/Globulin Ratio 0.5 (0.8-1.8); Alk Phos 101 U/L (50-136); Anion Gap 3 mmol/L (6-16); Aspartate Aminotrans (AST/SGOT 74 U/L (12-37); Bilirubin, Total 0.5 mg/dL (0.1-1.0); Blood Urea Nitrogen 26 mg/dL (8-24); Bun/Creatinine Ratio 34.9 (12.0-20.0); CO2, Blood 33 mmol/L (21-32); Chloride, Blood 103 mmol/L (98-108); Creatinine, Blood 0.74 mg/dL (0.60-1.20); Globulin, Blood 3.3 g/dL (2.2-4.0); Glomerular Filtration Rate >60 (60-); Glucose, Blood 103 mg/dL (70-99); Sodium, Blood 139 mmol/L (136-145); Total Protein, Blood 4.9 g/dL (6.4-8.2); Vancomycin, Trough 13.7 ug/mL (5.0-10.0)
--- NOTE | 2021-01-03 07:38 | NUR ---
SHIFT SUMMARY PT WAS MORE CAlM AND COOPERATIVE THAN PREVIOUS NOC SHIFTS. PAIN WAS BETTER CONTROLLED THAN PREVIOUS NOC SHIFTS, PT STATED HE WAS MORE COMFORTABLE. PT WAS ALERT AND ORIENTED WITH INTERMITTENT CONFUSION, PT WAS EASILY REORIENTED. PT STATED HE WAS IMPROVED AND FEELING BETTER. VITALS STABLE. PT ON 5-6LPM VIA NC WITH O2 SATS >90%. PT SLEPT MOST OF THE NIGHT AND DID NOT HAVE ANY PANIC ATTACKS, PT DID NOT USE BIPAP.
--- NOTE | 2021-01-03 17:32 | NUR ---
SHIFT SUMMARY; ASSUMED CARE AT 0700, REPORT FROM ABENA EDMOND. A/A/OX4 DURING SHIFT. ANXIOUS AT TIMES REQUIRING REASSURANCE. WORKED WITH PT, UP TO CHAIR FOR SHORT TIME IN AM. LIQUID STOOL X2 DURING SHIFT. LAURI CARE AND BED CHANGE PROVIDED. INCREASINGLY ANXIOUS IN AFTERNOON. REPORTS SOB, L/S COARSE DURING EVENT, BECOMES AGITATED AND YELLING TO HAVE BIPAP PLACED. YELLING "I'M GOING TO ". RT TO ROOM. SPOKE WITH KARLA SEVERINO ORDERED, MEDICATED WITH PER ORDERS, BIPAP STARTED. AGITATION DECREASES AND AFTER PERIOD OF TIME ON BIPAP FALLS ASLEEP. CATH IN PLACE DRAINING YELLOW URINE. WILL CONTINUE TO MONITOR AND TREAT UNTIL CHANGE OF SHIFT.
[2021-01-04 03:37] LABS: Albumin, Blood 1.6 g/dL (3.4-5.0); Anion Gap 4 mmol/L (6-16); Blood Urea Nitrogen 26 mg/dL (8-24); Bun/Creatinine Ratio 34.8 (12.0-20.0); CO2, Blood 30 mmol/L (21-32); Chloride, Blood 103 mmol/L (98-108); Creatinine, Blood 0.75 mg/dL (0.60-1.20); Glomerular Filtration Rate >60 (60-); Glucose, Blood 126 mg/dL (70-99); Phosphorus, Blood 2.5 mg/dL (2.5-4.9); Potassium, Blood 3.5 mmol/L (3.5-5.5); Sodium, Blood 137 mmol/L (136-145)
--- NOTE | 2021-01-04 05:08 | NUR ---
MANAGER MATERIAL SUMMARY PTSLEPT VERY HARD FOR FIRST HALF OF THE SHIFT DENYING ANY PAIN AND WAS BREATHING W EASE. AROUND 0330 PT AWOKE W C/O PAIN AND DYSPNEA, PT MEDICATED PER EMAR WHICH RELIEVED HIS PAIN BUT HE REMAINED TACHYPNEIC. O2 SATS >90% ON BIPAP PT DID INSIST ON REMOVING BIPAP THIS AM BUT RQUIRED 15L TO MAINTAIN O2 SAT >90%. PT DESATURATES VERY QUICKLY ON <12L. PT'S BP ELEVATED THIS SHIFT IN THE 150'S AND ONE BP IN THE 160'S WHEN HE WAS C/O PAIN IN HIS KNEES. WOUND CARE PROVIDED BY THIS RN ON R HAND PER ORDER, SEE PIC IN CHART. PT REPOSITIONED THROUGHOUT SHIFT AND CREAM APPLIED TO REDDENED LAURI-AREA. WCTM UNTIL REPORT GIVEN TO DAYSHIFT RN.
--- NOTE | 2021-01-04 18:18 | NUR ---
PT RECEIVED ANALGESIC 3X FOR BILATERAL KNEE PAIN; PT HAD 3 LARGE LOOSE BM; RECTAL TUBE INSERTED PER DR. ARBOLEDA; PT ON 12L NC AT END OF DAY SHIFT SATTING 93% AND REPORTS NO DIFFICULTY BREATHING; PT SAT ON SIDE OF BED WITH PHYSICAL THERAPY; PT ATE 30% OF LUNCH AND NO BREAKFAST OR DINNER; PT DENIES ADDITIONAL CONCERNS AT THIS TIME.
--- NOTE | 2021-01-04 18:21 | NUR ---
AT 1715, DR. ARBOLEDA WAS NOTIFIED OF PT'S SIGNIFICANTLY LARGE AND LOOSE BM'S; ORDERS PROVIDED FOR A RECTAL TUBE AND INSTRUCTION TO APPLY ZINC OINTMENT TO INFLAMED AREAS. RECTAL TUBE INSERTED PER ORDER. PT REPORTED THAT HE WAS GLAD TO NOT HAVE STOOL PASS ON SORE PERIRECTAL TISSUE.
[2021-01-05 04:13] LABS: BASOPHILS ABSOLUTE AUTO 0.04 K/mm3 (0.00-0.23); BASOPHILS PERCENT AUTO 0 % (0-2); EOSINOPHILS ABSOLUTE AUTO 0.16 K/mm3 (0.00-0.68); EOSINOPHILS PERCENT AUTO 1 % (0-6); Hematocrit 30.4 % (37.0-53.0); Hemoglobin 9.8 g/dL (13.5-17.5); IMMATURE GRAN ABSOLUTE AUTO 0.12 K/mm3 (0.00-0.10); IMMATURE GRAN PERCENT AUTO 1 % (0-1); LYMPHOCYTES ABSOLUTE AUTO 0.93 K/mm3 (0.84-5.20); LYMPHOCYTES PERCENT AUTO 7 % (21-46); MONOCYTES ABSOLUTE AUTO 0.73 K/mm3 (0.16-1.47); MONOCYTES PERCENT AUTO 6 % (4-13); Mean Corpuscular HGB 28.3 pg (26.0-34.0); Mean Corpuscular HGB Conc 32.2 g/dL (31.5-36.5); Mean Corpuscular Volume 88 fL (80-100); Mean Platelet Volume 9.6 fL (9.1-12.4); NEUTROPHILS ABSOLUTE AUTO 10.67 K/mm3 (1.96-9.15); NEUTROPHILS PERCENT AUTO 84 % (41-73); Platelet Count 432 K/mm3 (150-400); RDW Coefficient Variation 13.9 % (11.7-14.2); RDW Standard Deviation 44.9 fL (35.1-46.3); Red Blood Cell Count 3.46 M/mm3 (4.30-5.90); White Blood Cell Count 12.65 K/mm3 (4.00-11.30)
[2021-01-05 04:32] LABS: Albumin, Blood 1.7 g/dL (3.4-5.0); Anion Gap 6 mmol/L (6-16); Blood Urea Nitrogen 24 mg/dL (8-24); Bun/Creatinine Ratio 33.3 (12.0-20.0); CO2, Blood 30 mmol/L (21-32); Calcium, Blood 8.2 mg/dL (8.5-10.1); Chloride, Blood 102 mmol/L (98-108); Creatinine, Blood 0.72 mg/dL (0.60-1.20); Glomerular Filtration Rate >60 (60-); Glucose, Blood 128 mg/dL (70-99); Magnesium, Blood 1.8 mg/dL (1.6-2.4); Phosphorus, Blood 2.2 mg/dL (2.5-4.9); Sodium, Blood 138 mmol/L (136-145)
--- NOTE | 2021-01-05 05:46 | NUR ---
pt restless, moaning and intermittently confused. x1 dose iv ativan given with good results. remained on bipap all night. spo2 91-93% becomes very sob with minimal movement and spo2 decreases significantly. nonpitting edema to upper and lower extremities. rectal tube patent and helpful in controlling pt's incontinence. loose liquid stool remains present. aggressive skin care to pt's coccyx, back and armpits. mimimal assist with transfer from pt. vss. call light with in reach. bed alarm on. no s/s acute distress
[2021-01-05 11:45] LABS: Vancomycin, Trough 12.3 ug/mL (5.0-10.0)
--- NOTE | 2021-01-05 12:02 | NUR ---
Pt sitting in chair upon arrival and is on BIPAP. Both PT and OT just finished working with Pt. Pt appears dyspneic. Pt reports significant pain in both of his legs and unable to rate pain. Pt is requesting pain medication. Pt agreeable for this RN to F/U when his pain is better managed. Spoke with PT Cosme prior to visiting with Pt and discussed case. Pt has rehab potential and would benefit from continued encouragement. Pt would benefit from education re-enforcement of consequences regarding non compliance. Spoke with Bedside RN Marina, relayed Pt's pain medication request, and discussed case. Palliative Care will remain available.
--- NOTE | 2021-01-05 19:53 | NUR ---
AT 1845, PT BEGAN TO HAVE PANIC ATTACK AND VERBALIZED THAT HE HAD SEVERE KNEE PAIN; ACETAMINOPHEN AND OXICODONE WERE GIVEN PER NOV; PT APPEARED TO VISIBLY RELAX BUT REMAINED TACHYPNEIC RATE IN 30'S WITH HEART RATE IN 150'S; ON SITE [employer] TECHNICIAN VERIFIED THAT PT WENT INTO A-FLUTTER; DR. TAYLOR WAS CALLED; ORDERS PROVIDED TO ADMINISTER LORAZEPAN PER NOV AND CALL HER BACK IF WITHIN ONE HOUR RATE HAD NOT GONE BACK DOWN; FIO2 INCREASED FROM 40% TO 45%; SPO2 INCREASED FROM 86% TO 92%; RT NOTIFIED TO CALL BACK ABOUT FIO2 CHANGE; REPORT GIVEN TO [facility] NURSE SEDRICK CONCERNING LORAZEPAM ADMINISTRATION WITH CALLBACK INSTRUCTIONS.
--- NOTE | 2021-01-05 19:57 | NUR ---
PT HAD STAT ABD CT; RECEIVED ANALGESIA 3X FOR REPORTED PAIN; HAD POTASSIUM ELECTROLYTE REPLETION RX; TRANSFERRED FROM BED TO CHAIR ASSIST X2 AND BACK TO BED VIA LIFT ASSIST X4; PT APPEARED TO BE EXPERIENCING A PANIC ATTACK WITH VERBALIZATIONS ABOUT PAIN AND FEAR OF PAIN AND TACHYPNEA, TACHYCARDIA, AND DYSPNEA AT SHIFT CHANGE; AT 1999 PT REPORTED THAT HE FELT MUCH BETTER AND HAD NO ADDITIONAL CONCERNS
--- NOTE | 2021-01-06 00:52 | NUR ---
PT CONTINUOUS PULSE OX GOING OFF - READING 86%M BIPAP SETTINGS WERE 12/6 FIO2 45%. PLETH READS WELL, AND PT HAS GOOD SEAL ON MASK. TITRATED FIO2 UP SLOWLY TO 60% TO MAINTAIN A SAT OF 89-91% AT THIS TIME. PT SEEMS TO BE ANXIOUS - ALTHOUGH ATIVAN NOT AVAILABLE FOR ADMINISTRATION. GAVE PAIN MEDICATION TO HELP KEEP PATIENT COMFORTABLE. BP AND HR STABLE. RESPIRATORY AND LANDCARE OFFICER NOTIFIED. WILL CONTINUE TO MONITOR.
[2021-01-06 02:30] LABS: PCO2 Arterial 40.1 mmHg (35-45); PO2 Arterial 64.8 mmHg (80-100); pH Blood Arterial 7.48 (7.35-7.45)
[2021-01-06 04:11] LABS: BASOPHILS ABSOLUTE AUTO 0.03 K/mm3 (0.00-0.23); BASOPHILS PERCENT AUTO 0 % (0-2); EOSINOPHILS ABSOLUTE AUTO 0.05 K/mm3 (0.00-0.68); EOSINOPHILS PERCENT AUTO 0 % (0-6); Hematocrit 29.2 % (37.0-53.0); Hemoglobin 9.6 g/dL (13.5-17.5); IMMATURE GRAN ABSOLUTE AUTO 0.15 K/mm3 (0.00-0.10); IMMATURE GRAN PERCENT AUTO 1 % (0-1); LYMPHOCYTES ABSOLUTE AUTO 0.51 K/mm3 (0.84-5.20); LYMPHOCYTES PERCENT AUTO 4 % (21-46); MONOCYTES ABSOLUTE AUTO 0.74 K/mm3 (0.16-1.47); MONOCYTES PERCENT AUTO 5 % (4-13); Mean Corpuscular HGB 28.5 pg (26.0-34.0); Mean Corpuscular HGB Conc 32.9 g/dL (31.5-36.5); Mean Corpuscular Volume 87 fL (80-100); Mean Platelet Volume 9.3 fL (9.1-12.4); NEUTROPHILS ABSOLUTE AUTO 12.55 K/mm3 (1.96-9.15); NEUTROPHILS PERCENT AUTO 89 % (41-73); Platelet Count 411 K/mm3 (150-400); RDW Coefficient Variation 13.8 % (11.7-14.2); RDW Standard Deviation 43.2 fL (35.1-46.3); Red Blood Cell Count 3.37 M/mm3 (4.30-5.90); White Blood Cell Count 14.03 K/mm3 (4.00-11.30)
[2021-01-06 05:10] LABS: Albumin, Blood 1.6 g/dL (3.4-5.0); Anion Gap 6 mmol/L (6-16); Blood Urea Nitrogen 18 mg/dL (8-24); Bun/Creatinine Ratio 25.6 (12.0-20.0); CO2, Blood 29 mmol/L (21-32); Calcium, Blood 8.1 mg/dL (8.5-10.1); Chloride, Blood 104 mmol/L (98-108); Glomerular Filtration Rate >60 (60-); Glucose, Blood 140 mg/dL (70-99); Magnesium, Blood 1.5 mg/dL (1.6-2.4); Potassium, Blood 3.1 mmol/L (3.5-5.5); Sodium, Blood 139 mmol/L (136-145)
--- NOTE | 2021-01-06 06:43 | NUR ---
shift summary to add from previous note - pt very anxious and distressed. pt unable to take long breaks from bipap as he desats to 70's quickly. adjustemnts made to bipap, notified of hcanges, cxr done - pending impression. iv lasix ordered x1. adequate uop via [place]. minimal output from rectal tube - but c/d/i. pain x1. ativan x1 - see emar. iv abx and electrolytes given. q2 turns. call light wtihin reach, bed in lowest position. will continue to monitor.
--- NOTE | 2021-01-06 08:30 | NUR ---
PT LAYING IN BED, AGITATED, PULLING ON TUBES, AND LINES, STATES HIS PAIN IS OK BUT IS WORKING TO BREATH ON BIPAP, SATS ARE 89 TO 90%, CALLED RT, SHE CAME IN AND CHANGED SETTINGS ON BIPAP, AND IS BETTER BUT RATE IS IN THE 30'S TO 40'S, HEART RATE IS IN THE 150'S, ATIVAN GIVEN WITH NO RELIEF, CALL TO DR. ARBOLEDA AND ASKED HER TO COME TO THE ROOM, SHE SAID SHE WILL BE HERE IN A FEW MINUTES, LUNGS ARE CLEAR IN UPPER [place], COURSE JUNKY IN BASES, RESP EVEN AND LABORED, BIPAP IN PLACE, NO COUGH NOTED, HR ST IN THE 140'S TO 150'S, ANASARCA NOTED, LEFT ARM HAS DEP EDEMA, POWER GLIDE TO LEFT ARM, IT FLUSHES WELL, AND DRAWS BLOOD WELL, DUPREE CATH DRAINING CLEAR YELLOW URINE, RECTAL TUBE DRAINING LIQUID STOOL, SKIN HAS EXCORIATION TO BUTTOCKS, MEPILEX PLACED, DANIA CHAN, CALL LIGHT IN REACH.
[2021-01-06 10:30] LABS: Alanine Aminotransfer (ALT/SGP 75 U/L (12-78); Albumin, Blood 1.7 g/dL (3.4-5.0); Albumin/Globulin Ratio 0.4 (0.8-1.8); Alk Phos 116 U/L (50-136); Anion Gap 6 mmol/L (6-16); Aspartate Aminotrans (AST/SGOT 42 U/L (12-37); Bilirubin, Total 0.5 mg/dL (0.1-1.0); Blood Urea Nitrogen 17 mg/dL (8-24); Bun/Creatinine Ratio 24.8 (12.0-20.0); CO2, Blood 29 mmol/L (21-32); Calcium, Blood 7.9 mg/dL (8.5-10.1); Chloride, Blood 103 mmol/L (98-108); Creatinine, Blood 0.69 mg/dL (0.60-1.20); Globulin, Blood 3.9 g/dL (2.2-4.0); Glomerular Filtration Rate >60 (60-); Glucose, Blood 139 mg/dL (70-99); Lactate Dehydrogenase (Ld),Bld 383 U/L (100-240); Potassium, Blood 3.4 mmol/L (3.5-5.5); Sodium, Blood 138 mmol/L (136-145); Total Protein, Blood 5.6 g/dL (6.4-8.2)
[2021-01-06 11:08] LABS: SARS-Cov-2 (COVID-19) PCR, MMC NEGATIVE (NEGATIVE)
--- NOTE | 2021-01-06 12:12 | NUR ---
ELVIN SAW PT AND HAD HIM MOVED TO ICU, HE WAS MOVED VIA BED WITH ASSIST OF RT MANAGING THE BIPAP, REPORT TO SULY KRAFT.
--- NOTE | 2021-01-06 12:15 | NUR ---
ARRIVED TO ICU 16 FROM PCU. PT ARRIVED ON BIPAP 14/8 FIO2 70%, TACHYPNIC WITH RR 40'S. LUNGS DIM THROUGHOUT MONITOR SHOWED PT TO BE SINUS TACH WITH RATES 120'S. PT RESPONSIVE TO VOICE ORIENTED TO PERSON, PT DID RECEIVE MORPHINE PRIOR TO ARRIVAL TO ICU. DR STANLEY AT BEDSIDE AND PRECEDEX GTT STARTED AND TITRATED TO 0.7MCG/KR/HR. DUPREE IN PLACE DRAINING CLEAR YELLOW URINE AND RECTAL TUBE IN PLACE DRAINING BROWN LIQUID STOOL. POWERGLIDE TO LEFT UPPER ARM, GETS BLOOD RETURN. 3+ EDEMA NOTED TO LEFT UPPER ARM. PT HAS ESCORATION TO BUTTOCKS AND PRESSURE BREAKDOWN TO NASAL SEPTUM FROM BIPAP. RT SWITCHED BIPAP TO FULL FACE MASK FOR SKIN PROTECTION. PER ULTRASOUND, PT RECEIVED LOVENOX YESTDAY EVENING, THORACENTISIS UNABLE TO BE COMPLETED UNTIL TOMORROW MORNING. DR STANLEY AWARE.
--- NOTE | 2021-01-06 16:27 | NUR ---
REASSESSMENT PT IS RESTLESS/CONFUSED, NOT FOLLOWING DIRECTIONS. DR WHITE AT BEDSIDE TO EVAL. PRECEDEX TITRATED UP TO 1.4MCG/KR/HR PER DR REQUEST. BP DECREASED EARLIER AND PT STARTED ON CRYSTAL GTT, WITH IMPROVEMENT TO BP'S. PT HAD A SHORT RUN OF VTACH, EKG OBTAINED PER ORDERS. DUPREE DRAINING CLEAR YELLOW URINE. SINUS RHYTHM ON THE MONITOR. CURRENT BIPAP SETTINGS 16/8 FIO2 50%. PALLITIVE CARE RN CHECKING TO SEE IF PT HAS ANY FAMILY MEMBERS.
--- NOTE | 2021-01-06 17:10 | NUR ---
Case Conference Note Spoke with Dr Lipscomb, Bedside ABENA Ahuja, and discussed case. Pt continues to be BIPAP dependent and is currently on Precedex drip. Pt attempting to swipe at BIPAP. At this time Pt's condition does not appear to be improving. Called [facility] and Pt's PCP Dr Disla. Staff report Pt does not have any NOK or emergency contact listed. Bedside ABENA Ahuja provides release of information sheet with a friend listed. Called friend Yousif Malhotra and provided update. Yousif reports Pt was an only child and no children. Yousif reports meeting Pt and his SO at the time in 1979 at a bar. Yousif currently lives in [place]. Since then they have been friends and have stayed in contact even when Pt moved to [place]. Discussed the importance of having a healthcare decision maker for Pt. Yousif reports willingness to be Pt's decision maker. Provided Yousif with Palliative Care contact information and instructed to call with any questions or concerns. Yousif Malhotra [phone] Palliative Care will remain available for supportive and therapeutic visits.
--- NOTE | 2021-01-06 18:40 | NUR ---
SHIFT SUMMARY PT IS SEDATED ON PRECEDEX, MORE TOLERANT OF BIPAP. CURRENT BIPAP SETTINGS 16/8 FIO2 50%, RESP RATE IMPROVED TO HIGH 20'S LOW 30'S. SPO2 >90%. PRECEDEX GTT AT 1.4MCG/KG/HR. NEOSYNEPHRINE GTT TITRATED DOWN TO 10MCG/MIN. PT DID HAVE SHORT RUN OF VTACH, APPROX 6 SECS. SINUS RHTYHM ON THE MONITOR. DUPREE TO GRAVITY DRAINAGE. RECTAL TUBE IN PLACE. KCL CURRENTLY BEING REPLACED. PT HAD MAGNESIUM REPLACED.
--- NOTE | 2021-01-06 20:30 | NUR ---
ASSUMPTION OF CARE PT RESTING IN BED, PRECEDEX AT 1.4 MCG/KG/HR, CRYSTAL AT 10 MCG/KG/HR, NS AT TKO RATE OF 10 ML/HR. PT ON BIPAP 16/ 50% RATE OF 12. PT AROUSES TO VERBAL STIMULI AND BECOMES VERY RESTLESS. DOES SQUEEZE HANDS TO COMMAND. DUPREE PATENT AND DRAINING TO GRAVITY. RECTAL TUBE PATENT AND DRAINING TO GRAVITY. PRN ATIVAN AVAILABLE IF RESTLESSNESS INCREASES, WILL CONTINUE TO MONITOR.
--- NOTE | 2021-01-06 21:18 | NUR ---
UPDATE 1939: FIO2 INCREASED TO 60% TO MAINTAIN SPO2 >90% 2049: PT DROPPING SATS TO 88%, FIO2 INCREASED TO 70% 2052: SPOKE WITH DR. WHITE REGARDING PT'S PERIODS OF AGITATION AND AIR HUNGER. PER DR. WHITE, ALLOW PT TO HAVE PERIODS OF AGITATION GIVE PRN ATIVAN IF PROLONGED PERIOD OF AGITATION. UPDATED REGARDING NEED FOR INCREASED FIO2. NO NEW ORDERS AT THIS TIME, WILL CONTINUE TO MONITOR.
--- NOTE | 2021-01-06 23:00 | NUR ---
UPDATE PT BECAME RESTLESS AND AGITATED, SHOUTING "HELP ME" WHEN ASKED WHAT HE NEEDED HE REPLIED "JUST KILL ME". PRN ATIVAN GIVEN TO CALM PATIENT. O2 SATS DROPPING TO 81%, FIO2 INCREASED TO 100% BIPAP SETTING CHANGED TO 20/14. PT'S SATS REMAIN <85%. CALL TO DR. CINDY NICE.
--- NOTE | 2021-01-07 00:45 | NUR ---
UPDATE DR. WHITE AT BEDSIDE, PT VERBALIZING DESIRE TO BE COMFORTABLE. DR. WHITE VERBALIZED COMFORT CARE ORDERS. 2 MG MORPHINE GIVEN FOR AIR HUNGER PER DR. WHITE. PT EXPIRES AT 0108. NOTIFIED. PT'S FRIEND ANIAS NOTIFIED OF PT'S PASSING.
== END 2021-01-07 01:08 | DRG 871 ==
LOC: ER 18:27 → PCU 20:46 → ICUW 20:46 → PCU 21:46 → ICUW 01-06 11:39
PROVIDERS: Emergency Medicine; Family Medicine; Internal Medicine; Nurse Practitioner Acute Care; Pharmacist; ADMIT Internal Medicine
PROC: 5A09557 Assistance with Respiratory Ventilation, Greater than 96 Consecutive Hours, Continuous Positive Airway Pressure (ICD-10-PCS; 2020-12-30)
PROC: 0W993ZZ Drainage of Right Pleural Cavity, Percutaneous Approach (ICD-10-PCS; principal; 2021-01-06)
DX: A41.9 Sepsis, unspecified organism (principal); J96.01 Acute respiratory failure with hypoxia; J18.9 Pneumonia, unspecified organism; M62.82 Rhabdomyolysis; F05 Delirium due to known physiological condition; I82.612 Acute embolism and thrombosis of superficial veins of left upper extremity; J91.8 Pleural effusion in other conditions classified elsewhere; A28.0 Pasteurellosis; E44.0 Moderate protein-calorie malnutrition; Z51.5 Encounter for palliative care; Z66 Do not resuscitate; Z20.822 Contact with and (suspected) exposure to COVID-19; E78.5 Hyperlipidemia, unspecified; E87.6 Hypokalemia; G31.84 Mild cognitive impairment of uncertain or unknown etiology; M48.02 Spinal stenosis, cervical region; Z87.19 Personal history of other diseases of the digestive system; F41.8 Other specified anxiety disorders; E83.42 Hypomagnesemia; E83.39 Other disorders of phosphorus metabolism; Z87.891 Personal history of nicotine dependence; Z90.89 Acquired absence of other organs; Z98.890 Other specified postprocedural states; Z79.899 Other long term (current) drug therapy; Z68.27 Body mass index [BMI] 27.0-27.9, adult
CPT/HCPCS: 0241U; 36415; 36600; 71045; 71250; 76604; 80048; 80053; 80069; 80202; 81001; 82803; 82947; 83605; 83615; 83735; 83880; 84145; 84484; 85025; 85027; 85610; 85651; 87040; 93005; 93010; 93970; 94640; 94660; 94762; 96365; 96367; 97110; 97116; 97161; 97166; 97530; 99285-25; A9270; J0295; J0692; J1170; J1650; J1885; J1940; J2060; J2270; J2370; J2543; J3370; J3475; J3480; J7040; J7050; J7060; P9046; U0004